=== PATIENT | female | born 1960 | race Caucasian/White ===

== ENCOUNTER 2023-02-01 08:42 | Day surgery (SDC) | payer BC, SELFPAY ==
[2023-02-01 09:06] VITALS: BP 151/50; PULSE 76; RESP 18; O2SAT 97
[2023-02-01] MEDS: BESIFLOXACIN HCL 100 DROP DROPS.SUSP OP ×4 (09:13→09:54)
[2023-02-01] MEDS: TROPICAMIDE 1% OP SOL 300 DROP/15 ML BOTTLE OP ×4 (09:14→09:55)
[2023-02-01] MEDS: DIAZEPAM 5 MG TABLET PO (09:14)
[2023-02-01] MEDS: CYCLOPENTOLATE HCL 1% OP SOL 40 DROP/2 ML BOTTLE OP ×4 (09:14→09:54)
[2023-02-01] MEDS: PHENYLEPHRINE HCL 2.5% OP SOL 40 DROP/2 ML BOTTLE OP ×4 (09:14→09:55)
--- NOTE | 2023-02-01 10:00 | OP_ITS ---
OPERATION DATE: ??02/01/2023 SURGEON:? Phan Burns M.D. PREOPERATIVE DIAGNOSIS:? Nuclear sclerotic cataract right eye. POSTOPERATIVE DIAGNOSIS:? Nuclear sclerotic cataract right eye. PROCEDURE:? Cataract extraction with intraocular lens placement for the right eye. ANESTHESIA:? Topical. ESTIMATED BLOOD LOSS:? Zero. COMPLICATIONS:? None. PROCEDURE:? The patient was brought to the operating room in supine position.? After proper identification, the right eye was prepped and draped in a sterile ophthalmic fashion.? A paracentesis was created at the 11 o'clock position.? Approximately 1 cc of unpreserved Xylocaine was injected into the anterior chamber followed by Amvisc Plus.? Using a 2.6 mm Keratome blade, a clear corneal incision was created at the 9 o'clock limbus.? A cystotome was then used to begin a curvilinear capsulorrhexis that was continued for 360 degrees with the Utrata forceps.? BSS on a 26 gauge cannula was injected beneath the anterior capsule to hydrodissect as well as hydrodelineate the lens.? After ensuring mobility, phacoemulsification was performed in a [id number]-type fashion.? After all nuclear material had been removed from the eye, IA was introduced and all residual cortical material was cleaned up.? Additional Amvisc Plus was injected into the posterior bag and a lens model MX60, 23.0 diopters was then injected and dialed into position.? After ensuring centration, IA was reintroduced into the anterior chamber and all residual Amvisc Plus was removed from the eye.?? BSS on a 30 gauge cannula was injected into the stroma of both the clear corneal incision as well as the paracentesis to hydrate the wounds.? Additional BSS was injected into the anterior chamber to pressurize the eye at approximately 20 to 22 mmHg by finger tension.? 0.1 cc of antibiotic was injected into the anterior chamber and Weck-Paulette sponges were used to check the wounds to be watertight.? One drop of Apraclonidine and one drop of prednisolone acetate were placed into the eye and a shield was placed over top. The patient was then sent to the postoperative area in satisfactory condition to follow up the following day for postoperative care. JUAN DAVID
[2023-02-01] MEDS: LIDOCAINE HCL 1% PF 20 MG/2 ML VIAL 1 ML INJ (10:15)
[2023-02-01] MEDS: BETADINE POVIDONE-IODINE 5% OP SOL 30 ML BOTTLE OP (10:15)
[2023-02-01] MEDS: LIDOCAINE 2% JELLY 10 ML UR (10:15)
[2023-02-01 10:23] VITALS: BP 141/81; PULSE 59; RESP 18; O2SAT 97
[2023-02-01] MEDS: HYALURONATE SODIUM 16 MG/ML SYRINGE EYE-RIGHT (10:29)
[2023-02-01] MEDS: CEFUROXIME SODIUM 750 MG, 0.9 % SODIUM CHLORIDE 16.3 ML OP (10:32)
[2023-02-01] MEDS: PHENYLEPHRINE/KETOROLAC 1-0.3% ML VIAL 4 ML IRR (10:33)
[2023-02-01] MEDS: APRACLONIDINE HCL 100 DROP/5 ML BOTTLE OP (10:33)
[2023-02-01] MEDS: PREDNISOLONE ACETATE OP 1% SUSP 100 DROPS/5 ML 1 DROP OP (10:34)
[2023-02-01 10:38] VITALS: BP 151/73; PULSE 64; RESP 18; O2SAT 100
== END 2023-02-01 10:50 | disposition home or self-care (01) ==
PROVIDERS: PCP Family Medicine; Visit Provider Ophthalmology
PROC: (CPT 66984; principal; 2023-02-01 10:00)
DX: H25.11 Age-related nuclear cataract, right eye (principal); E78.00 Pure hypercholesterolemia, unspecified; Z86.73 Personal history of transient ischemic attack (TIA), and cerebral infarction without residual deficits; M19.90 Unspecified osteoarthritis, unspecified site
CPT/HCPCS: 66984; V2630

== ENCOUNTER 2023-03-29 15:40 | Outpatient (OUT) | payer BC, SELFPAY ==
--- NOTE | 2023-03-29 15:46 | US_ITS ---
[address] [address] Patient Name: DIANNA CHAVARRIA MRN: [id number] date: 1960 Sex: F Assigned Patient Location: Current Patient Location: US Accession/Order Number: [id number] Exam Date: 03/29/2023 15:55 Report Date: 03/29/2023 21:00 At the request of: ANDERSON WALLACE Procedure: US carotid duplex BI EXAMINATION: US carotid duplex BI HISTORY: Carotid stenosis, left I65.22 COMPARISON: No relevant comparison available. TECHNIQUE: Duplex Doppler ultrasound analysis of carotid and vertebral arteries. . Bilateral carotid arterial duplex examination was performed using B-mode, color flow and spectral analysis. Carotid stenosis is reported according to validated velocity parameters, similar to NASCET criteria. FINDINGS: RIGHT CAROTID ARTERY Mild atherosclerotic plaque Subclavian: PSV: 127.0 cm/s cm/s EDV: 17.1 cm/s cm/s CCA: Prox: PSV: 94.6 cm/s cm/s EDV: 31.6 cm/s cm/s Mid: PSV: 88.2 cm/s cm/s EDV: 33.3 cm/s cm/s Distal: PSV: 62.9 cm/s cm/s EDV: 26.7 cm/s cm/s BULB: PSV: 57.8 cm/s cm/s EDV: 20.4 cm/s cm/s ICA: Prox: PSV: 68.8 cm/s cm/s EDV: 33.6 cm/s cm/s Mid: PSV: 75.4 cm/s cm/s EDV: 32.5 cm/s cm/s Distal: PSV: 166.4 cm/s cm/s EDV: 68.8 cm/s cm/s ECA: PSV: 89.6 cm/s cm/s EDV: 23.7 cm/s cm/s VERTEBRAL: PSV: 52.3 cm/s cm/s EDV: 24.8 cm/s cm/s, antegrade ICA/CCA ratio: PSV: 1.9 EDV: 2.1 LEFT CAROTID ARTERY mild atherosclerotic plaque Subclavian: PSV: 168.7 cm/s cm/s EDV: 0.0 cm/s CCA: Prox: PSV: 70.7 cm/s cm/s EDV: 13.7 cm/s Mid: PSV: 62.9 cm/s cm/s EDV: 18.9 cm/s Distal: PSV: 56.4 cm/s cm/s EDV: 12.4 cm/s BULB: PSV: 48.8 cm/s cm/s EDV: 10.4 cm/s ICA: Prox: Occluded ECA: PSV: 95.2 cm/s cm/s EDV: 22.5 cm/s VERTEBRAL: PSV: 72.5 cm/s cm/s EDV: 27.3 cm/s , antegrade ICA/CCA ratio: PSV: 0.9 EDV: 0.8 US/US carotid duplex BI IMPRESSION: 0-49% flow stenosis right internal carotid artery Occlusion of the left internal carotid artery Spectral Doppler US Thresholds (Reference: Rickie EG, et al. Radiology 2000; 214:247-252) Stenosis (%) PSV (cm/sec) VICA/VCCA 0-49 <150 <2.5 50-69 150-225 2.5-4.0 >70 >225 >4.0 Electronically authenticated by: MILEY HERNANDEZ Date: 03/29/2023 21:00
== END 2023-03-29 15:41 | disposition home or self-care (01) ==
LOC: US 15:41
PROVIDERS: PCP Family Medicine; Visit Provider Physician Assistant
DX: I65.23 Occlusion and stenosis of bilateral carotid arteries (principal); G45.9 Transient cerebral ischemic attack, unspecified
CPT/HCPCS: 93880

== ENCOUNTER 2023-08-01 15:25 | Outpatient (OUT) | payer BC, SELFPAY ==
--- NOTE | 2023-08-01 15:32 | XR_ITS ---
The [address] [address] Patient Name: DIANNA CHAVARRIA MRN: [id number] date: 1960 Sex: F Assigned Patient Location: [facility] Current Patient Location: [facility] Accession/Order Number: [id number] Exam Date: 08/01/2023 15:40 Report Date: 08/01/2023 16:26 At the request of: ANDERSON WALLACE Procedure: XR knee RT 4V EXAM: XR knee RT 4V HISTORY: Acute Pain Of Right Knee M25.561 COMPARISON: None. TECHNIQUE: 4 views of the right knee were obtained. FINDINGS: There is no apparent acute fracture or dislocation. The joint spaces are intact. No osteochondral injury is identified. Mild diffuse osteopenia is noted. A very small suprapatellar joint effusion is suggested. Faint soft tissue calcification is seen at the insertion site of the quadriceps tendon XR/XR knee RT 4V IMPRESSION: No acute fracture or dislocation. No significant degenerative changes are present. Electronically authenticated by: GAVIOTA HINDS Date: 08/01/2023 16:26
== END 2023-08-01 15:26 | disposition home or self-care (01) ==
PROVIDERS: PCP Family Medicine; Visit Provider Physician Assistant
DX: M25.561 Pain in right knee (principal)
CPT/HCPCS: 73564

== ENCOUNTER 2023-08-13 15:19 | Outpatient (OUT) | payer BC, SELFPAY ==
--- NOTE | 2023-08-13 15:25 | MR_ITS ---
[address] [address] Patient Name: DIANNA CHAVARRIA MRN: [id number] date: 1960 Sex: F Assigned Patient Location: MRI Current Patient Location: MRI Accession/Order Number: [id number] Exam Date: 08/13/2023 15:34 Report Date: 08/13/2023 16:28 At the request of: ANDERSON WALLACE Procedure: MR knee RT wo con EXAM: MR knee RT wo con REASON FOR EXAM: Internal Derangement Of Right Knee M23.91. TECHNIQUE: Multiplanar, multisequence imaging of the right knee was performed without contrast COMPARISON: Plain radiographs 08/01/2023. FINDINGS: Laterally, the iliotibial band, fibular collateral ligament, popliteus tendon and biceps tendon are intact. The ACL is intact. The lateral meniscus demonstrates normal morphology and signal without tear. 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 Medially, the medial collateral ligament is intact. The PCL is intact. The medial meniscus demonstrates a small focal free edge radial tear involving the posterior horn root attachment (series 8, image 19). No displaced meniscal fragment identified. Intermediate grade chondrosis of the medial compartment. The extensor mechanism is intact. Intermediate grade chondrosis of the patellofemoral cartilage. The bone marrow signal is normal. Trace effusion. The regional musculature is without muscle strain or tendon tear. MR/MR knee RT wo con IMPRESSION: 1. Small focal free edge radial tear of the posterior horn root attachment the medial meniscus. No displaced meniscal fragment identified. 2. Moderate tricompartmental chondrosis. 3. Trace effusion Electronically authenticated by: EDMOND GARG Date: 08/13/2023 16:28
== END 2023-08-13 15:20 | disposition home or self-care (01) ==
LOC: MRI 15:19
PROVIDERS: PCP Family Medicine; Visit Provider Physician Assistant
DX: M25.561 Pain in right knee (principal); W19.XXXA Unspecified fall, initial encounter; S83.206A Unspecified tear of unspecified meniscus, current injury, right knee, initial encounter; M23.91 Unspecified internal derangement of right knee; S83.241A Other tear of medial meniscus, current injury, right knee, initial encounter
CPT/HCPCS: 73721

== ENCOUNTER 2024-01-23 07:41 | Outpatient (OUT) | payer OTHER, SELFPAY ==
--- NOTE | 2024-01-23 07:42 | MM_ITS ---
Patient Name: DIANNA CHAVARRIA MR#: [id number] : 1960 Exam Date: 01/23/2024 Ordering Doctor: DR ANDERSON GOODMAN RADIOLOGY REPORT PROCEDURE: MM TOMOSYNTHESIS SCREENING BI COMPARISON: MG MAMM SCREEN 3D RAVINDER CAD, 06/07/2022. MG MAMM SCREEN RAVINDER W CAD, 09/22/2019. INDICATIONS: Screening Calculator Name NCI Breast Cancer Risk Assessment Tool 5 Year Breast Cancer Risk 1.40% Lifetime Breast Cancer Risk 4.90% Personal Breast Cancer No Personal Ovarian Cancer No Treatments None Family Cancers None LOCATION: [facility] BREAST COMPOSITION: There are scattered areas of fibroglandular density. FINDINGS: DIAGNOSTIC CATEGORY 2--BENIGN FINDING. NO CHANGE FROM COMPARISON. Scattered benign-appearing calcifications are present. Scattered benign-appearing lymph nodes are present. RIGHT BREAST: No significant suspicious finding. LEFT BREAST: No significant suspicious finding. RECOMMENDATIONS: ROUTINE MAMMOGRAM AND CLINICAL EVALUATION IN 12 MONTHS. PLEASE NOTE: A NORMAL MAMMOGRAM DOES NOT EXCLUDE THE POSSIBILITY OF BREAST CANCER. A CLINICALLY SUSPICIOUS PALPABLE LUMP SHOULD BE BIOPSIED. Dictated by: Miguel Post MD on 01/23/2024 at 10:54 Approved by: Miguel Post MD on 01/23/2024 at 10:55
--- OUTSIDE RECORDS SUMMARY | 2024-01-23 07:43 | XMS_ITS | CCD ---
Author Organization [facility] Care Team Providers Care Clinical Admissions Manager Name Role Phone KIMO FLORES Unavailable Unavailable KIMO FLORES Unavailable Unavailable KIMO FLORES Unavailable Unavailable MARIO ANDERSON Unavailable Unavailable MD Mario Anderson Primary Care Provider MD Richard Alamo Attending Provider [phone] SHERIF ., DR GENA Sunshine Consulting Unavailable SHERIF ., DR GENA Sunshine Admitting Unavailable MONICA, DR LYNN Primary Care Unavailable SHERIF ., DR GENA Sunshine Attending Unavailable FRANKY ., DR STEINER Consulting Unavailable GRAHAM SMITH Consulting Unavailable KIERSTEN DAUGHERTY Admitting Unavailable MONICA, DR LYNN Primary Care Unavailable KIERSTEN DAUGHERTY Attending Unavailable SALLY WALLACE Admitting Unavailable MARY, DR MILEY Hay Consulting Unavailable SALLY WALLACE Attending Unavailable MONICA, DR LYNN Primary Care Unavailable SALLY WALLACE Consulting Unavailable JOYCE PEDRAZA Consulting Unavailable FRANKY ., DR STEINER Admitting Unavailable MONICA, DR LYNN Primary Care Unavailable FRANKY Lewis, DR STEINER Attending Unavailable RENA VIVEROS Consulting Unavailable Unavailable Primary Care Provider UnavailMario Weaver MD Primary Care Provider ROCKY RANKIN Attending Unavailable MARIO ANDERSON Primary Care Unavailable MD Mario Anderson Primary Care Provider MD Rocky Rankin Attending Provider [phone] MD Gen Ohara Referring Provider MD Luis Alfredo Mendoza Attending Provider Luis Alfredo Mendoza Unavailable Luis Alfredo Mendoza Attending UnavailLuis Alfredo Pearl Admitting Unavailabl e Mario Anderson Primary Care Unavailable Gen Ohara Referring Unavailable Mario Anderson Primary Care Unavailable Rocky Rankin Attending Unavailable Rocky Rankin Admitting Unavailable Hemmer Sally GOODMAN Primary Care Provider PAT, WADE Rizzo Referring Unavailable NEWARK, WADE Rizzo Attending Unavailable NEWARK, WADE Rizzo Referring Unavailable NEWARK, WADE Rizzo Referring Unavailable NEWARK, WADE Rizzo Attending Unavailable NEWARK, WADE Rizzo Referring Unavailable NEWARK, WADE Rizzo Admitting Unavailable PAT, WADE Rizzo Attending Unavailable HILTONROSANNA PRITCHARD Attending Unavailable SALLY WALLACE Primary Care Unavailable JOHN PEREZ Attending Unavailab le HEMMER, SALLY Wilson Attending Unavailable APLING, MYKEL Montanez Attending Unavailable APLING, MYKEL Montanez Attending Unavailable APLING, MYKEL Montanez Attending Unavailable HEMNETO, SALLY Wilson Attending Unavailable HEMSALLY DUQUE Attending Unavailable PAT, WADE Rizzo Attending Unavailable HEMSALLY DUQUE Referring Unavailable PAT, WADE Rizzo Attending Unavailable APLING, MYKEL Montanez Attending Unavailable Allergies Allergy Classification Reported Allergen(s) Allergy Type Date of Onset Reaction(s) Facility (1 source) Clarithromycin Drug Allergy [address] [facility] Repository (8 sources) Clarithromycin; Translations: [CLARITHROMYCIN] Drug Allergy 0 Anaphylaxis, Unknown [facility] Medications Current Medications Medication Drug Class(es) Dates Sig (Normalized) Sig (Original) aspirin 81 mg delayed release oral tablet (6 sources) Platelet Aggregation Inhibitor, Nonsteroidal Anti-inflammatory Drug Start: 10-06-2019 take 1 tablet by mouth once daily Aspirin (Aspir-81) 81 mg Tablet,Delayed Release (Dr/Ec) Active 81 MG PO Daily October 06, 2019 12:00am atorvastatin 40 mg oral tablet (6 sources) HMG-CoA Reductase Inhibitor Start: 11-05-2020 take 40 mg by mouth once daily Atorvastatin Active 40 MG PO Daily November 05, 2020 12:00am clopidogrel 75 mg oral tablet (6 sources) P2Y12 Platelet Inhibitor Start: 11-05-2020 take 1 tablet by mouth once daily Clopidogrel (Plavix) 75 mg Tablet Active 75 MG PO Daily November 05, 2020 12:00am Potassium (1 source) Potassium Active Completed/Discontinued Medications Medication Drug Class(es) Dates Sig (Normalized) Sig (Original) predniSONE 10 mg oral tablet (6 sources) Start: 10-06-2019 End: 11-05-2020 Prednisone Discontinued 10 MG PO As Directed October 06, 2019 12:00am November 05, 2020 10:10am traMADol hydrochloride 50 mg oral tablet (7 sources) Opioid Agonist Start: 11-05-2020 End: 11-08-2020 take 50 mg by mouth once daily Tramadol Discontinued 50 MG PO Daily November 05, 2020 12:00am November 08, 2020 9:53am Problems Active Problems Problem Classification Problem Date Documented Date Episodic/Chronic Abdominal pain (8 sources) Indigestion; Translations: [Epigastric pain] Onset: 06-15-2022 11-08-2020 Episodic Chronic kidney disease (1 source) Chronic kidney disease, unspecified; Translations: [Chronic kidney disease, unspecified] Onset: 08-30-2023 Chronic Coronary atherosclerosis and other heart disease (1 source) Atherosclerotic heart disease of [place] coronary artery without angina pectoris; Translations: [Atherosclerotic heart disease of [place] coronary artery without angina pectoris] Onset: 08-30-2023 Chronic Disorders of lipid metabolism (4 sources) Mixed hyperlipidemia; Translations: [Mixed hyperlipidemia] Onset: 09-13-2023 09-13-2023 Chronic Mood disorders (1 source) Major depressive disorder, single episode, unspecified; Translations: [JAIMIE DEPRESS D/O SINGLE EPIS UNS] Onset: 06-15-2022 Chronic Occlusion or stenosis of precerebral arteries (8 sources) Asymptomatic occlusion of extracranial carotid artery; Translations: [Occlusion and stenosis of unspecified carotid artery] Onset: 09-13-2023 09-13-2023 Chronic Other and unspecified benign neoplasm (1 source) History of polyp of colon; Translations: [History of colon polyps] Episodic Other nervous system disorders (1 source) Chronic pain; Translations: [Other chronic pain] Chronic Other nutritional; endocrine; and metabolic disorders (2 sources) Overweight in adulthood with body mass index of 25 or more but less than 30; Translations: [Overweight] Onset: 09-13-2023 09-13-2023 Episodic Other nutritional; endocrine; and metabolic disorders (2 sources) Overweight; Translations: [Overweight] Onset: 09-13-2023 Episodic Other nutritional; endocrine; and metabolic disorders (2 sources) Body mass index (BMI) 27.0-27.9, adult; Translations: [Body mass index (BMI) 27.0-27.9, adult] Onset: 09-13-2023 Episodic Other screening for suspected conditions (not mental disorders or infectious disease) (15 sources) History of adenomatous polyp of colon; Translations: [Encounter for screening for malignant neoplasm of colon] Onset: 06-07-2022 11-08-2020 Episodic Residual codes; unclassified (6 sources) Hereditary disorder of endocrine system; Translations: [Genetic susceptibility to other disease] 11-10-2020 Episodic Spondylosis; intervertebral disc disorders; other back problems (3 sources) Solitary sacroiliitis; Translations: [Sacroiliitis, not elsewhere classified] Chronic Transient cerebral ischemia (1 source) Transient cerebral ischemia; Translations: [Transient cerebral ischemic attack, unspecified] Chronic Unclassified (1 source) LEFT SHOULDER BICEP TENDONITIS ROTATOR CUFF SYNDROME / LEFT SHOULDER BICEP TENDONITIS ROTATOR CUFF SYNDROME() Onset: 01-30-2018 Unclassified (1 source) CONTACT W/AND (SUSP) EXPOS COVID-19; Translations: [CONTACT W/AND (SUSP) EXPOS COVID-19] Onset: 09-11-2022 Unclassified (1 source) right knee meniscal tear Onset: 09-26-2023 Past or Other Problems Problem Classification Problem Date Documented Da te Episodic/Chronic Abdominal hernia (1 source) Diaphragmatic hernia without obstruction or gangrene; Translations: [DIAPH HERNIA W/O OBST/GANGRENE] Onset: 09-11-2022 Episodic Calculus of urinary tract (2 sources) Calculus of kidney; Translations: [Personal history of urinary calculi] Onset: 06-15-2022 Episodic Nausea and vomiting (4 sources) Nausea with vomiting, unspecified; Translations: [NAUSEA WITH VOMITING UNSPECIFIED] Onset: 06-13-2022 Episodic Nonspecific chest pain (4 sources) Chest pain, unspecified; Translations: [CHEST PAIN UNSPECIFIED] Onset: 09-03-2022 Episodic Other aftercare (1 source) Other correction (current) drug therapy; Translations: [OTH SUB PLANT MANAGER CURRENT DRUG THERAPY] Onset: 09-11-2022 Episodic Other aftercare (1 source) rodent exterminator (current) use of aspirin; Translations: [SUB PLANT MANAGER CURRENT USE OF ASPIRIN] Onset: 06-15-2022 Episodic Other bone disease and musculoskeletal deformities (1 source) Chondrocostal junction syndrome [Tietze]; Translations: [CHONDROCOSTAL JUNCTION SYND TIETZE] Onset: 09-11-2022 Episodic Other diseases of kidney and ureters (1 source) Cyst of kidney, acquired; Translations: [CYST OF KIDNEY ACQUIRED] Onset: 09-11-2022 Episodic Other lower respiratory disease (1 source) Personal history of other diseases of the respiratory system; Translations: [PERS HX OTH DZ RESPIRATORY SYSTEM] Onset: 09-11-2022 Episodic Other lower respiratory disease (1 source) Shortness of breath; Translations: [SHORTNESS OF BREATH] Onset: 09-11-2022 Episodic Residual codes; unclassified (1 source) Acquired absence of other specified parts of digestive tract; Translations: [ACQ ABSENCE OTH PART DIGESTV TRACT] Onset: 09-11-2022 Episodic Residual codes; unclassified (1 source) Acquired absence of both cervix and uterus; Translations: [ACQUIRED ABSENCE BOTH CERVIX AND UTERUS] Onset: 09-11-2022 Episodic Screening and history of mental health and substance abuse codes (1 source) Personal history of nicotine dependence; Translations: [PERSONAL HISTORY OF NICOTINE DEPEND] Onset: 09-11-2022 Episodic Unclassified (1 source) LEFT SHOULDER BICEP TENDONITIS ROTATOR CUFF SYNDROME; Translations: [LEFT SHOULDER BICEP TENDONITIS ROTATOR CUFF SYNDROME] Onset: 01-30-2018 Results Test Name Value Interpretation Reference Range Facility US carotid doppler BIon 09-04 US carotid doppler BI [facility] [address] Ultrasound Report Signed Patient: Dianna Chavarria MR#: [id number] : 1960 Acct:[id number] Age/Sex: 63 / F ADM Date: 09/20/23 Loc: [facility]: [facility] Attending Dr: Luis Alfredo Mendoza MD Ordering Provider: Luis Alfredo Mendoza MD Date of Service: 09/20/23 US/US carotid doppler BI: I65.23 Copies to: Luis Alfredo Mendoza MD CAROTID DUPLEX INDICATION: Surveillance study for known left internal carotid artery occlusion. PROCEDURE: Color-flow duplex scanning is used to interrogate the extracranial carotid arterial system, as well as both vertebral arteries. The proximal right internal carotid artery shows a highest peak systolic velocity of 77 cm/s with an end-diastolic velocity of 34.8 cm/s . The mid internal carotid artery measures 96.3 cm/s peak systolic with an end-diastolic velocity of 46.6 cm/s . The distal segment measures 142 cm/s peak systolic with an end diastolic velocity of 47.5 cm/s . The velocities of the right common carotid artery are 113 cm/s peak systolic and 34.3 cm/s end- diastolic proximally and 88.4 cm/s peak systolic and 32.4 cm/s end-diastolic distally. The peak systolic velocity ratio of the internal to the common carotid artery is 1.26 . The right external carotid artery measures 94.4 cm/s peak systolic. The right vertebral artery is patent at 75.2 cm/s peak systolic and with antegrade flow. The proximal left internal carotid artery shows a highest peak systolic velocity of 20.4 cm/s.The velocities of the left common carotid artery are 108 cm/s peak systolic and 21.1 cm/s end- diastolic proximally and 98.8 cm/s peak systolic and 24.9 cm/s end-diastolic distally. The peak systolic velocity ratio of the internal to the common carotid artery is 0.19 . The left external carotid artery measures 148 cm/s peak systolic. The left vertebral artery is patent at 77 cm/s peak systolic with antegrade flow. US/US carotid doppler BI IMPRESSION: NO HEMODYNAMICALLY SIGNIFICANT STENOSIS OF THE RIGHT EXTRACRANIAL INTERNAL CAROTID ARTERY. BOTH VERTEBRAL ARTERIES ARE PATENT WITH ANTEGRADE FLOW. The left internal carotid artery is occluded. Impression dictated by: Luis Alfredo Mendoza MD09/22/2023 2:19 PM Dictation Location: RAD-DOC-04 Tech: Bety Mcdonald Transcribed By: ZAINA 09/22/231418 Dictated By: Luis Alfredo Mendoza MD 09/22/231417 Signed By: 09/22/231418 Normal [facility] NM sin perf SPECT rest stron 09-20-2023 NM sin perf SPECT rest [facility] [place] [address] Nuclear Medicine Report Signed Patient: Dianna Chavarria MR#: [id number] : 1960 Acct:[id number] Age/Sex: 63 / F ADM Date: 09/19/23 Loc: [place] Room: Type: [facility] CLI Attending Dr: Rocky Rankin MD Copies to: Rocky Rankin MD, [facility] Gen Ohara MD Ordering Provider: Rocky Rankin MD, [facility] Date of Service: 09/19/23 NM/NM sin perf SPECT rest str: R94.31,E78.2,Z01.818 REFERRING PHYSICIAN: Rocky Rankin MD REASON FOR THE STUDY: Preoperative clearance. PROCEDURE: The patient underwent a 1-day rest/stress protocol. Rest images obtained by injecting 6.2 mCi of Cardiolite. Stress images obtained by injecting 18.3 mCi of Cardiolite. Subsequently, gated SPECT and ejection fraction studies were performed. IMAGING RESULT: This appears to be a fair study. It appears to be normal. There is no clear pattern of ischemia or myocardial infarction. Left ventricular ejection fraction appears normal, calculated at 78%. TID index normal at 0.99. CONCLUSION: 1. No clear pattern of ischemia or myocardial infarction. 2. Normal left ventricular systolic function and wall motion. 3. No previous study available for comparison. Transcribed By: MIGUE 09/20/231945 Dictated By: Gen Ohara MD 09/20/23 1833 Signed By: 09/21/23 1231 Normal [facility] STR cardiac stress/lexiscano n 09-19-2023 STR cardiac stress/lexiscan [facility] Main [address] [address] Cardiac Stress Test Signed Patient: Dianna Chavarria MR#: [id number] : 1960 Acct:[id number] Age/Sex: 63 / F ADM Date: 09/19/23 Loc: [place] Room: Type: [facility] CLI Attending Dr: Rocky Rankin MD Copies to: Rocky Rankin MD, [facility] Gen Ohara MD Ordering Provider: Rokcy Rankin MD, [facility] Date of Service: 09/19/23 STR/STR cardiac stress/lexiscan: carotid stenosis hyperlipidemia abn ekg REFERRING PHYSICIAN: Rocky Rankin MD REASON FOR STUDY: Preoperative risk assessment, abnormal EKG, carotid disease. PROCEDURE: The patient underwent Lexiscan myocardial perfusion study. The patient was injected with 0.4 mg of Lexiscan, following which she reported typical vasodilatory symptoms. Blood pressure and heart response to Lexiscan was physiologic. Baseline ECG showed normal sinus rhythm with diffuse nonspecific ST-T changes. Following Lexiscan, no changes were seen. Aminophylline was given to reverse vasodilatory symptoms. CONCLUSION: 1. Lexiscan myocardial perfusion study with nondiagnostic ST-T changes for ischemia. 2. Typical vasodilatory symptoms following Lexiscan infusion, resolved with aminophylline infusion. 3. No provoked arrhythmia. 4. Myocardial perfusion study will be dictated separately. Transcribed By: MIGUE 09/20/23 1502 Dictated By: Gen Ohara MD 09/19/23 1904 Signed By: 09/20/23 1541 Normal [facility] ECG 12 Leadon 09-13-2023 ECG revealed normal sinus rhythm with nonspecific ST and T changes and PAC [facility] Work Phone: CARDIAC FRANCISCA 3-6on 3 CK [Catalytic activity/Vol] 67 U/L Normal 26-192 [facility] Comment on above: Performed By: #### C MREP #### [facility] [address] [address] [address] José Miguel Farr CK.MB [Mass/Vol] 2.38 ng/mL Normal <=3.60 [facility] [place] Comment on above: Performed By: #### C MREP #### [facility] [id number] José Miguel Farr HSTROP 32.8 pg/mL Normal 4.0-51.[address] [facility] Comment on above: Result Comment: CUT- OFF POINTS HAVE BEEN ESTABLISHED BASED ON THE FOURTH UNIVERSAL DEFINITIONS OF MYOCARDIAL INFARCTION. THE UPPER REFERENCE LIMIT (URL) OF TROPONIN, DEFINED THE 99TH PERCENTILE OF cTnI DISTRIBUTION IN A REFERENCE POPULATION, HAS BEEN CONFIRMED THE DECISION THRESHOLD FOR LA DIAGNOSIS. Performed By: #### C MREP #### [facility] [address] [address] [address] José Miguel Farr Covid-19 PCR (CVDTB)on SARS-CoV-2 (COVID-19) RNA ARETHA+probe Ql (Unsp spec) Not detected Normal NOT DETECTED [facility] Comment on above: Result Comment: When diagnostic testing is negative, the possibility of a false negative should be considered in the context of a patient's recent exposures and the presence of clinical signs and symptoms consistent with SARS-CoV-2. This test is not yet approved or cleared by the [place] FDA. When there are no FDA-approved or cleared tests available, and other criteria are met, FDA can make tests available under an emergency access mechanism called an Emergency Use Authorization (EUA). The EUA for this test is supported by the [place] of Health and Human Service's declaration that circumstances exist to justify the emergency use of in vitro diagnostics for the detection and/or diagnosis of the virus that causes COVID-19. This EUA will remain in effect for the duration of the COVID-19 declaration justifying emergency of IVDs, unless it is terminated or revoked by the FDA (after which the test may no longer be used). Performed By: #### C VDTBH ####[facility] [address] [id number] Farr BNPon 09-03-2022 Natriuretic peptide B (Bld) [Mass/Vol] 222.0 pg/mL Normal <=900.[address] [facility] Comment on above: Performed By: #### B MP, BNP, HSTROPN ####[facility] [address] [place], [place] [address]VzJoshua Farr CBC AUTO DIFFon 09-03-2022 BASO # 0.0 103/ul Normal 0.0-0.[address] [facility] Comment on above: Performed By: #### C BC #### [facility] [address] [place], [place] [address] Dr. José Miguel Farr Basophils/100 WBC (Bld) 0.2 % Normal 0.2-2.0 [facility] Comment on above: Performed By: #### C BC #### [facility] [address] [place] [address] Dr. José Miguel Farr EO # 0.0 103/ul Normal 0.0-0.7 [facility] Comment on above: Performed By: #### C BC #### [facility] [address] [place] [address] Dr. José Miguel Farr Eosinophils/100 WBC (Bld) 0.1 % Critically low 0.9-7.0 [facility] Comment on above: Performed By: #### C BC #### [facility] [address] [place] [address] Dr. José Miguel Farr Erythrocyte distribution width (RBC) [Ratio] 12.1 % Normal 11.0-15.0 [facility] Comment on above: Performed By: #### C BC #### [facility] [address] [place] [address] Dr. José Miguel Farr Hematocrit (Bld) [Volume fraction] 45.6 % Normal 36.0-48.0 [facility] Comment on above: Performed By: #### C BC #### [facility] [address] [place] [address] Dr. José Miguel Farr Hemoglobin (Bld) [Mass/Vol] 14.7 g/dL Normal 12.0-16.0 [facility] Comment on above: Performed By: #### C BC #### [facility] [address] [place] [address] Dr. José Miguel Farr IG # 0.04 10e3/ul Critically high 0.00-0.03 [facility] Comment on above: Performed By: #### C BC #### [facility] [address] [place] [address] Dr. José Miguel Farr IG % 0.3 % Normal 0.0-0.5 [facility] Comment on above: Performed By: #### C BC #### [facility] [address] [place] [address] Dr. José Miguel Farr LYMPH # 1.3 103/ul Normal 1.2-3.8 [facility] Comment on above: Performed By: #### C BC #### [facility] [address] [address] [address] José Miguel Farr Lymphocytes/100 WBC (Bld) 10.5 % Critically low 20.5-60.0 [facility] Comment on above: Performed By: #### C BC #### [facility] [address] [place] [address] Dr. José Miguel Farr MANUAL DIFF REQ NO Normal [facility] Comment on above: Performed By: #### C BC #### [facility] [address] [address] [address] José Miguel Farr MCH (RBC) [Entitic mass] 31.2 pg Normal 26.7-34.0 [facility] Comment on above: Performed By: #### C BC #### [facility] [address] [place] [address] Dr. José Miguel Farr MCHC (RBC) [Mass/Vol] 32.2 g/dL Normal 29.9-35.2 [facility] Comment on above: Performed By: #### C BC #### [facility] [address] [place] [address] Dr. José Miguel Farr MCV (RBC) [Entitic vol] 96.8 fL Normal 81.0-99.0 [facility] Comment on above: Performed By: #### C BC #### [facility] [address] [place] [address] Dr. José Miguel Farr MONO # 1.2 103/ul Critically high 0.3-0.8 [facility] Comment on above: Performed By: #### C BC #### [facility] [address] [place] [address] Dr. José Miguel Farr Monocytes/100 WBC (Bld) 9.4 % Normal 1.7-12.[address] [facility] Comment on above: Performed By: #### C BC #### [facility] [address] [place] [address] Dr. José Miguel Farr NEUT # 9.8 103/ul Critically high 1.4-6.5 [facility] Comment on above: Performed By: #### C BC #### [facility] [address] [address] [address] José Miguel Farr Neutrophils/100 WBC (Bld) 79.5 % Critically high 43.0-75.0 [facility] Comment on above: Performed By: #### C BC #### [facility] [address] [address] [address] José Miguel Farr Platelet mean volume (Bld) [Entitic vol] 9.6 fL Normal 9.5-13.5 [facility] Comment on above: Performed By: #### C BC #### [facility] [address] [address] [address] José Miguel Farr PLT 303 103/ul Normal 150-450 [facility] Comment on above: Performed By: #### C BC #### [facility] [address] [place] [address] Dr. José Miguel Farr RBC 4.71 106/ul Normal 4.20-5.[address] [facility] Comment on above: Performed By: #### C BC #### [facility] [address] [place] [address] Dr. José Miguel Farr WBC 12.3 103/ul Critically high 4.0-11.0 [facility] Comment on above: Performed By: #### C BC #### [facility] [address] [place] [address] Dr. José Miguel Farr CTA CHEST WO W CONon 023 CTA CHEST WO W CON EXAMINATION:CTA CHES T WO W CON INDICATION:CHEST PAIN, UNSPECIFIED, shortness of breath COMPARISON:10/05/2017 TECHNIQUE:Thin section transaxial slices were acquired through the chest with intravenous contrast per PE protocol. Coronal and sagittal reconstructed images were reviewed. FINDINGS: PULMONARY ARTERIES: There is excellent opacification of the pulmonary vasculature. No suspicious pulmonary arterial filling defects are identified to suggest pulmonary embolus. LUNGS: There is curvilinear scarring or atelectasis in the lung bases. No suspicious airspace disease is appreciated in the lungs to suggest an infectious or inflammatory process. PLEURAL CAVITY: No pleural effusion. MEDIASTINUM: Trachea and central airways are patent. HEART: The heart is unremarkable.There is no evidence of right heart strain. VASCULAR:There is no aneurysm or dissection of the thoracic aorta. LYMPH NODES:No suspicious lymphadenopathy. CHEST WALL/AXILLA: Chest wall and axilla are unremarkable. BONES: Mild endplate degenerative changes are present in the thoracic spine. VISUALIZED UPPER ABDOMEN: There is similar intrahepatic ductal dilation. There is a simple cyst in the left upper kidney measuring 1.2 cm. IMPRESSION: 1. No evidence of pulmonary embolus. No suspicious airspace disease in the lungs. Electronically authenticated by: GRAHAM SMITH Date: 2022-09-03 18:11 Normal [facility] D-DIMERon 09-03-2022 D-DIMER 2.04 mg/L FEU Critically high <=0.[address] [facility] Comment on above: Performed By: #### D DIM #### [facility] [address] [address] [address] José Miguel Farr D-DIMER COMMENTS SEE BELOW Normal [facility] Comment on above: Result Comment: Incr eases in D-Dimer concentration observed with thromboembolic events can be variable due to localization, size, and age of the thrombus. Therefore, a thromboembolic event cannot be diagnosed with certainty on the basis of the reference range. D-Dimers may also be elevated for a variety of disorders including: advanced age, , coronary disease, cancer, liver disease, infection, inflammation, hematoma, DIC, trauma, post-surgery, diabetes, thrombolytic or anticoagulant therapy, stress, and generalized hospitalization. Performed By: #### D DIM #### [facility] [address] [address] [address] José Miguel Farr PROF CHEM 8 (BAS METB)on Anion gap [Moles/Vol] 15.8 mmol/L Normal [facility] Comment on above: Performed By: #### B MP, BNP, HSTROPN ####[facility] [address] [id number]. José Miguel Farr Calcium [Mass/Vol] 9.1 mg/dL Normal 8.5-10.1 [facility] Comment on above: Performed By: #### B MP, BNP, HSTROPN ####[facility] [address] [id number]. José Miguel Farr Chloride [Moles/Vol] 106 mmol/L Normal 98-107 [facility] Comment on above: Performed By: #### B MP, BNP, HSTROPN ####[facility] [address] [address]Dr. José Miguel Farr CO2 [Moles/Vol] 23.5 mmol/L Normal 21.0-32.0 [facility] Comment on above: Performed By: #### B MP, BNP, HSTROPN ####[facility] [id number] [place], [place] [address]Dr. José Miguel Farr Creatinine [Mass/Vol] 0.85 mg/dL Normal 0.55-1.02 [facility] Comment on above: Performed By: #### B MP, BNP, HSTROPN ####[facility] [address] [address]Dr. José Miguel Farr EGFR-AF SRI LANKAN >60 Normal >=60 [facility] Comment on above: Performed By: #### B MP, BNP, HSTROPN ####[facility] [address] [place], [place] [address]Dr. José Miguel Farr EGFR-NON AF SRI LANKAN >60 Normal >=60 [facility] Comment on above: Performed By: #### B MP, BNP, HSTROPN ####[facility] [address] [address]Dr. Sandiannetta Farr Glucose [Mass/Vol] 125 mg/dL Critically high 74-106 [facility] Comment on above: Performed By: #### B MP, BNP, HSTROPN ####[facility] [address] [address]Dr. José Miguel Farr Potassium [Moles/Vol] 3.3 mmol/L Critically low 3.5-5.1 [facility] Comment on above: Performed By: #### B MP, BNP, HSTROPN ####[facility] [address] [address]Dr. José Miguel Farr Sodium [Moles/Vol] 142 mmol/L Normal 136-145 [facility] Comment on above: Performed By: #### B MP, BNP, HSTROPN ####[facility] [address] [address]DrJoshua Farr Urea nitrogen [Mass/Vol] 21.0 mg/dL Critically high 7.0-18.0 [facility] Comment on above: Performed By: #### B MP, BNP, HSTROPN ####[facility] [address] [address]Dr. José Miguel Farr Urea nitrogen/Creatinin e [Mass ratio] 24.7 mg/mg Normal [facility] Comment on above: Performed By: #### B MP, BNP, HSTROPN ####[facility] [address] [address]DrJoshua Farr TROPONIN, HIGH SENSITIVITYon 09-03-2022 HSTROP 35.9 pg/mL Normal 4.0-51.3 [facility] Comment on above: Result Comment: CUT- OFF POINTS HAVE BEEN ESTABLISHED BASED ON THE FOURTH UNIVERSAL DEFINITIONS OF MYOCARDIAL INFARCTION. THE UPPER REFERENCE LIMIT (URL) OF TROPONIN, DEFINED THE 99TH PERCENTILE OF cTnI DISTRIBUTION IN A REFERENCE POPULATION, HAS BEEN CONFIRMED THE DECISION THRESHOLD FOR LA DIAGNOSIS. Performed By: #### H STROPN #### [facility] [address] [address] [address] José Miguel Farr HSTROP 23.4 pg/mL Normal 4.0-51.3 [facility] Comment on above: Result Comment: CUT- OFF POINTS HAVE BEEN ESTABLISHED BASED ON THE FOURTH UNIVERSAL DEFINITIONS OF MYOCARDIAL INFARCTION. THE UPPER REFERENCE LIMIT (URL) OF TROPONIN, DEFINED THE 99TH PERCENTILE OF cTnI DISTRIBUTION IN A REFERENCE POPULATION, HAS BEEN CONFIRMED THE DECISION THRESHOLD FOR LA DIAGNOSIS. Performed By: #### B MP, BNP, HSTROPN ####[facility] [address] [address]DrJoshua Farr CBC AUTO DIFFon 06-13-2022 BASO # 0.1 103/ul Normal 0.0-0.1 [facility] Comment on above: Performed By: #### C BC #### [facility] [address] [address] [address] José Miguel Farr Basophils/100 WBC (Bld) 0.4 % Normal 0.2-2.0 [facility] Comment on above: Performed By: #### C BC #### [facility] [address] [place] [address] Dr. José Miguel Farr EO # 0.0 103/ul Normal 0.0-0.7 [facility] Comment on above: Performed By: #### C BC #### [facility] [address] [place] [address] Dr. José Miguel Farr Eosinophils/100 WBC (Bld) 0.3 % Critically low 0.9-7.0 [facility] Comment on above: Performed By: #### C BC #### [facility] [address] [place] [address] Dr. José Miguel Farr Erythrocyte distribution width (RBC) [Ratio] 12.3 % Normal 11.0-15.0 [facility] Comment on above: Performed By: #### C BC #### [facility] [address] [place] [address] Dr. José Miguel Farr Hematocrit (Bld) [Volume fraction] 42.8 % Normal 36.0-48.0 [facility] Comment on above: Performed By: #### C BC #### [facility] [address] [place] [address] Dr. José Miguel Farr Hemoglobin (Bld) [Mass/Vol] 13.8 g/dL Normal 12.0-16.0 [facility] Comment on above: Performed By: #### C BC #### [facility] [address] [place] [address] Dr. José Miguel Farr IG # 0.08 10e3/ul Critically high 0.00-0.03 [facility] Comment on above: Performed By: #### C BC #### [facility] [address] [place] [address] Dr. José Miguel Farr IG % 0.5 % Normal 0.0-0.5 [facility] Comment on above: Performed By: #### C BC #### [facility] [address] [place] [address] Dr. José Miguel Farr LYMPH # 1.5 103/ul Normal 1.2-3.[address] [facility] Comment on above: Performed By: #### C BC #### [facility] [address] [place] [address] Dr. José Miguel Farr Lymphocytes/100 WBC (Bld) 9.6 % Critically low 20.5-60.0 [facility] Comment on above: Performed By: #### C BC #### [facility] [address] [place] [address] Dr. José Miguel Farr MANUAL DIFF REQ NO Normal [facility] Comment on above: Performed By: #### C BC #### [facility] [address] [place] [address] Dr. José Miguel Farr MCH (RBC) [Entitic mass] 30.9 pg Normal 26.7-34.0 [facility] Comment on above: Performed By: #### C BC #### [facility] [address] [place] [address] Dr. José Miguel Farr MCHC (RBC) [Mass/Vol] 32.2 g/dL Normal 29.9-35.2 [facility] Comment on above: Performed By: #### C BC #### [facility] [address] [place] [address] Dr. José Miguel Farr MCV (RBC) [Entitic vol] 96.0 fL Normal 81.0-99.0 [facility] Comment on above: Performed By: #### C BC #### [facility] [address] [place] [address] Dr. José Miguel Farr MONO # 1.5 103/ul Critically high 0.3-0.8 [facility] Comment on above: Performed By: #### C BC #### [facility] [address] [place] [address] Dr. José Miguel Farr Monocytes/100 WBC (Bld) 9.2 % Normal 1.7-12.[address] [facility] Comment on above: Performed By: #### C BC #### [facility] [address] [place] [address] Dr. José Miguel Farr NEUT # 12.7 103/ul Critically high 1.4-6.5 [facility] Comment on above: Performed By: #### C BC #### [facility] [address] [place] [address] Dr. José Miguel Farr Neutrophils/100 WBC (Bld) 80.0 % Critically high 43.0-75.0 [facility] Comment on above: Performed By: #### C BC #### [facility] [address] [place] [address] Dr. José Miguel Farr Platelet mean volume (Bld) [Entitic vol] 9.4 fL Critically low 9.5-13.5 [facility] Comment on above: Performed By: #### C BC #### [facility] [address] [place] [address] Dr. José Miguel Farr PLT 321 103/ul Normal 150-450 [facility] Comment on above: Performed By: #### C BC #### [facility] [address] [place] [address] Dr. José Miguel Farr RBC 4.46 106/ul Normal 4.20-5.[address] [facility] Comment on above: Performed By: #### C BC #### [facility] [address] [place] [address] Dr. José Miguel Farr WBC 15.9 103/ul Critically high 4.0-11.0 [facility] Comment on above: Performed By: #### C BC #### [facility] [address] [place] [address] Dr. José Miguel Farr CT ABD/PELVIS WO CONon 06-13 CT ABD/PELVIS WO CON INDICATION: UNSPECIFIED ABDOMINAL PAIN EXAMINATION: CT ABDOMEN AND PELVIS WITHOUT CONTRAST TECHNIQUE: Helically acquired images were obtained of the abdomen and pelvis without IV contrast. A radiation dose optimization technique was used for this scan. ORAL CONTRAST: None. COMPARISON: 06/29/2020 FINDINGS: LOWER CHEST: Mild left lower lobe scarring or atelectasis is unchanged. Mild right lower lobe scarring or atelectasis is new. The heart size is within normal limits. A pericardial effusion is not identified. LIVER: Mild intra and extrahepatic bile duct dilatation is unchanged. GALLBLADDER AND BILIARY TREE: The gallbladder is absent.. No intra- or extrahepatic biliary ductal dilation is identified. STOMACH: There is a small hiatal hernia. PANCREAS: A pancreatic mass or lesion is not identified. The pancreatic duct does not appear dilated. SPLEEN: The spleen does not appear enlarged. A splenic lesion is not identified. ADRENAL GLANDS: The adrenal glands appear normal. KIDNEYS AND URETERS: Scattered high and low bilateral renal lesions likely represent simple and hemorrhagic/proteinaceous cysts, unchanged since the prior. There is a nonobstructing roughly 2 mm mid pole left renal calculus, unchanged since the prior. The ureters are unremarkable in appearance. PERITONEUM: No free intra-abdominal air is identified. No free pelvic fluid is detected. BOWEL: No bowel distension is observed. There are scattered diverticula involving the ascending and transverse colon. There is no associated colonic wall thickening or stranding of adjacent fat planes to suggest diverticulitis or colitis. LYMPH NODES: No enlarged mesenteric or retroperitoneal lymph nodes. VESSELS: An aneurysm is not identified. No calcifications are observed within the abdominal aorta. UTERUS: Absent. OVARIES: The ovaries are not identified. URINARY BLADDER: Unremarkable. ABDOMINAL WALL: No abdominal or pelvic wall hernia. APPENDIX: The appendix is absent. MUSCULOSKELETAL: No lytic or blastic abnormality. IMPRESSION: 1. Mild intra and extrahepatic bile duct dilatation of only questionable relevance, unchanged. Please correlate with liver function tests. 2. Mild to moderate diverticulosis involving the descending and transverse colon without associated colonic wall thickening or stranding of adjacent fat planes to imply diverticulitis. 3. Nephrolithiasis. 4. Scattered high and low bilateral renal lesions, likely representing simple and hemorrhagic cysts, unchanged. 5. An acute abnormality is not identified. Electronically authenticated by: JOYCE PEDRAZA Date: 2022-06-13 20:25 Normal [facility] LIPASEon 06-13-2022 Lipase [Catalytic activity/Vol] 155.0 U/L Normal 73.0-393.[address] [facility] Comment on above: Performed By: #### L IPA, CMP #### [facility] [address] [place] [address] Dr. José Miguel Farr PROF 14(COMP METB)on 022 Albumin [Mass/Vol] 3.9 g/dL Normal 3.4-5.0 [facility] Comment on above: Performed By: #### L IPA, CMP #### [facility] [address] [place] [address] Dr. José Miguel Farr Albumin/Globulin [Mass ratio] 1.2 {ratio} Normal [facility] Comment on above: Performed By: #### L IPA, CMP #### [facility] [address] [address] [address] José Miguel Farr ALP [Catalytic activity/Vol] 66 U/L Normal 46-116 [facility] Comment on above: Performed By: #### L IPA, CMP #### [facility] [address] [place] [address] Dr. José Miguel Farr ALT [Catalytic activity/Vol] 30 U/L Normal 14-59 [facility] Comment on above: Performed By: #### L IPA, CMP #### [facility] [address] [place] [address] Dr. José Miguel Farr Anion gap [Moles/Vol] 11.6 mmol/L Normal [facility] Comment on above: Performed By: #### L IPA, CMP #### [facility] [address] [place] [address] Dr. José Miguel Farr AST [Catalytic activity/Vol] 16 U/L Normal 15-37 [facility] Comment on above: Performed By: #### L IPA, CMP #### [facility] [address] [place] [address] Dr. José Miguel Farr Bilirubin [Mass/Vol] 0.4 mg/dL Normal 0.2-1.0 [facility] Comment on above: Performed By: #### L IPA, CMP #### [facility] [address] [place] [address] Dr. José Miguel Farr Calcium [Mass/Vol] 9.1 mg/dL Normal 8.5-10.[address] [facility] Comment on above: Performed By: #### L IPA, CMP #### [facility] [address] [place] [address] Dr. José Miguel Farr Chloride [Moles/Vol] 103 mmol/L Normal 98-107 [facility] Comment on above: Performed By: #### L IPA, CMP #### [facility] [address] [address] [address] José Miguel Farr CO2 [Moles/Vol] 29.1 mmol/L Normal 21.0-32.0 [facility] Comment on above: Performed By: #### L IPA, CMP #### [facility] [address] [address] [address] José Miguel Farr Creatinine [Mass/Vol] 0.83 mg/dL Normal 0.55-1.02 [facility] Comment on above: Performed By: #### L IPA, CMP #### [facility] [address] [address] [address] José Miguel Farr EGFR-AF SRI LANKAN >60 Normal >=60 [facility] Comment on above: Performed By: #### L IPA, CMP #### [facility] [address] [address] [address] José Miguel Farr EGFR-NON AF SRI LANKAN >60 Normal >=60 [facility] Comment on above: Performed By: #### L IPA, CMP #### [facility] [address] [place] [address] Dr. José Miguel Farr Globulin (S) [Mass/Vol] 3.3 g/dL Normal [facility] Comment on above: Performed By: #### L IPA, CMP #### [facility] [address] [address] [address] José Miguel Farr Glucose [Mass/Vol] 102 mg/dL Normal 74-106 [facility] Comment on above: Performed By: #### L IPA, CMP #### [facility] [address] [address] [address] José Miguel Farr Potassium [Moles/Vol] 3.7 mmol/L Normal 3.5-5.1 [facility] Comment on above: Performed By: #### L IPA, CMP #### [facility] [address] [address] [address] José Miguel Farr Protein [Mass/Vol] 7.2 g/dL Normal 6.4-8.2 [facility] Comment on above: Performed By: #### L IPA, CMP #### [facility] [address] [address] [address] José Miguel Farr Sodium [Moles/Vol] 140 mmol/L Normal 136-145 [facility] Comment on above: Performed By: #### L IPA, CMP #### [facility] [address] [address] [address] José Miguel Farr Urea nitrogen [Mass/Vol] 13.0 mg/dL Normal 7.0-18.0 [facility] Comment on above: Performed By: #### L IPA, CMP #### [facility] [address] [place] [address] Dr. José Miguel Farr Urea nitrogen/Creatinin e [Mass ratio] 15.7 mg/mg Normal [facility] Comment on above: Performed By: #### L IPA, CMP #### [facility] [address] [place] [address] Dr. José Miguel Farr MG MAMM SCREEN 3D RAVINDER CADon 06-07-2022 MG MAMM SCREEN 3D RAVINDER CAD Patient: DIANNA CHAVARRIA Exam Date: 06/07/2022 : 1960 Gender:F Ordering : DR SALLY GOODMAN Admission #: [id number] Family : Order #: [id number] CLICK HERE TO VIEW EXAM RADIOLOGY REPORT PROCEDURE: MAMMOGRAM SCREENING 3D BILATERAL CAD COMPARISON: MG MAMM SCREEN RAVINDER W CAD, 02/20/2018. MG MAMM SCREEN RAVINDER W CAD, 09/22/2019. INDICATIONS: Screening mammography Calculator Name NCI Breast Cancer Risk Assessment Tool 5 Year Breast Cancer Risk 1.30% Lifetime Breast Cancer Risk 5.30% Personal Breast Cancer No Personal Ovarian Cancer No Treatments None Family Cancers None LOCATION: [facility] BREAST COMPOSITION: Scattered areas fibroglandular density. FINDINGS: DIAGNOSTIC CATEGORY 1--NEGATIVE. NO CHANGE FROM COMPARISON ASSESSMENT. Scattered benign-appearing calcifications are present. Scattered benign-appearing lymph nodes are present. RIGHT BREAST: No significant suspicious finding. LEFT BREAST: No significant suspicious finding. RECOMMENDATIONS: ROUTINE MAMMOGRAM AND CLINICAL EVALUATION IN 12 MONTHS. PLEASE NOTE: A NORMAL MAMMOGRAM DOES NOT EXCLUDE THE POSSIBILITY OF BREAST CANCER. A CLINICALLY SUSPICIOUS PALPABLE LUMP SHOULD BE BIOPSIED. Dictated by: Miley Post MD on 06/07/2022 at 14:14 Approved by: Miley Post MD on 06/07/2022 at 14:16 Normal [facility] Lab Reportson 07-24-2020 Lab Reports [id number]#[id number]:127 Normal [facility] Reminderson 07-21-2020 Reminders - From: Bety Tompkins To: EU - Clinical; Sent: 06/25/2020 13:20:55 EDT Show up: 07/09/2020 12:20:00 EST Subject: FISH/Cytology Reminder/Recall FISH/Cytology Pt only had Cytology done on 06/25/2020. Will have scanned in to [facility]. Normal [facility] Pre-Certification Formon Pre-Certification Form [id number]:127 Normal [facility] RAD - CT Reporton 07-05-[address] - [address] Report [id number]#[id number]:127 Normal [facility] Reminderson 07-02-2020 Reminders - From: Larissa Rodriguez To: EU - Clinical; Sent: 06/25/2020 12:45:54 EDT Show up: 06/28/2020 12:45:00 EDT Subject: ct scan Due Date/Time: 07/02/2020 12:45:00 EDT Reminder/Recall Order faxed to [facility] to sched Ct scan after auth approved SHOW PRW results message sent to PRW. Normal [facility] Ambulatory Clinical Summaryo n 06-25-2020 Ambulatory Clinical Summary {[id number]}CD: [id number] Normal [facility] Patient Educationon 10-23-20 20 Patient Education Family Medicine Kidney Stones Kidney stones (ureteral lithiasis ) are solid masses that form inside your kidneys. The intense pain is caused by the stone moving through the kidney, ureter, bladder, and urethra (urinary tract ). When the stone moves, the ureter starts to spasm around the stone. The stone is usually passed in the urine. HOME CARE ? Drink enough fluids to keep your pee (urine ) clear or pale yellow. This helps to get the stone out. ? Strain all pee through the provided strainer. Do not pee without peeing through the strainer, not even once. If you pee the stone out, catch it. The stone may be as small as a grain of salt. Take this to your doctor. ? Only take medicine as told by your doctor. ? Follow up with your doctor as told. ? Get follow-up X-rays as told by your doctor. GET HELP RIGHT AWAY IF: ? Your pain does not get better with medicine. ? You have a fever. ? Your pain increases and gets worse over 18 hours. ? You have new belly (abdominal ) pain. ? You feel faint or pass out. MAKE SURE YOU: ? Understand these instructions. ? Will watch your condition. ? Will get help right away if you are not doing well or get worse. Document Released: 02/05/2009 Document Revised: 11/11/2012 Document Reviewed: 06/17/2010 ExitCare? Patient Information ?2013 [employer] [facility] Urology Office/Clinic Noteon 06-25-2020 Urology Office/Clinic Note Chief Complaint Complains of pain, pressure and frequncy HPI Staff Pt is here today for pain pressure and frequency. Previous dx of kidney stone and chronic cystitis. Pt continues using Estrace vaginal cream 1 gm 3x a week. Pt feels as if she is not emptying. PVR today shows 24ml. In the doing the PVR pt complained of a tender lower abdomen when i was pushing but states that she really didn't notice it before. Dysuria: denies pain and burning Incomplete bladder emptying: pt feels she is not emptying. PVR today is 24ml. Hematuria: Pt states that she did see a small blood spot in her underwear yesterday and UA today shows no blood Frequency: Pt states that she voids about 1x every 2 hours Urgency: yes for a couple of months now Nocturia: 3x for about 2 months Stream: moderate with hesitancy Leaking: no Post void dripping: no Wearing pads/ Depends: no Urge incontinence: no Stress incontinence: yes if she coughs every now and then Incontinence without Sensory Awareness: no Abdominal pain: pt has a very tender lower abdomen. States that she really didn't notice it until i was doing the PVR today Flank pain: pt is being treated through the pain clinic for back issues Sexual complaints: no History of Present Illness reviewed UA. Reviewed last encounter. There have been no associated fever, chills, flank pain or blood in the urine. Pt states she has intermittent pressure in lower abdomen. Review of Systems PHQ Score Initial Depression Screen Score: 2 ROS - Provider Constitutional: denies weight loss, denies hot flashes. Eyes: denies eye problems. Gastrointestinal: denies nausea, denies vomiting. Cardiovascular: denies chest pain or angina. Integumentary: no dryness Musculoskeletal: denies musculoskeletal symptoms. ENMT: denies otolaryngeal symptoms. Respiratory: no shortness of breath. Heme/Lymph: denies easy bleeding tendency, denies easy bruising tendency. Psychiatric: no confusion, no anxiety. Genitourinary: denies vaginal discharge, denies incontinence, denies dysuria, denies hematuria, denies urinary frequency, denies amenorrhea, denies menorrhagia, denies abnormal bleeding, denies pelvic pain, denies genital sores, and denies decreased libido. Physical Exam Vitals & Measurements HR: 69(Peripheral) RR: 16 BP: 117/71 HT: 160.02 cm HT: 160.0 cm WT: 62 kg WT: 62.0 kg BMI: 24.21 General Appearance: alert , no acute distress, well nourished, well developed female. Head: normocephalic . Eyes: normal orbit and globe. ENMT: normal examination of external ears. Chest: Lungs CTA, respirations non labored . Cardiovascular: regular rate and rhythm. Abdomen: soft, non distended, severe left CVA and SP tenderness, no mass or organomegaly, no hernia. Pelvic: No bladder or rectal prolapse or ZENIA. no a.v. Mild urethral prolapse Genitourinary: bladder nonpalpable, severe flank tenderness, left Lymph Nodes: unremarkable palpation of the cervical area. Skin: warm, dry, no bruising. Psychiatric: cooperative, affect appropriate for age, normal judgement, euthymic mood. Assessment/Plan 1. Kidney stone (N20.0: Calculus of kidney) CT done 01/07/19 showed 2 small non obstructing stones in the left kidney. Pt is having Moderate tenderness on the left flank. ?one dropped into L ureter? 2. Chronic cystitis (N30.20: Other chronic cystitis without hematuria) S/P Cysto/Ud 05/2016. Estrace 1g 3x a wk. MWF. Will continue this medication. no infections at all. 3. Urgency of urination (R39.15: Urgency of urination) pt states that she does have urgency issues. 4. Nocturia (R35.1: Nocturia) 3x a night and this has been going on for the past 2 months. 5. Gross hematuria (R31.0: Gross hematuria) Pt states that she seen a little bit of blood in her underwear yesterday. This was the first and only time. Discussed options. The patient is aware that a full workup for hematuria would include upper urinary tract imaging, a scope of the bladder, and a FISH/Cytology test of the urine. Even though the risk of finding urinary tract pathology, such as kidney tumors, kidney stones, or bladder cancer is low, there is a [place] that these problems may exists. The patient accepts this risk and elects not to do the workup. Should there be the development of any gross blood or clots in the urine, I should be notified immediately, and a workup would be generated. 6. Urethral prolapse (N36.8: Other specified disorders of urethra) Mild I have reviewed the previous health record information and history for this patient from Dr. Max Follow-up With When Contact Information IVY ZIMMERMAN, Rodger Teran [facility] [address] , [place] [address]- [phone] Additional Instructions: Patient Education Kidney Stones, [id number] I, Mercedes Puente, personally scribed for Dr. Max on 06/25/2020 10:29:53. . Documentation recorded by the scribe, Mercedes Puente, accurately reflects the services(s) I performed and decisions made by me. Authenticated by Dr. Max on 06/25/2020 10:32:28. Problem List/Past Medical History Ongoing Chronic cystitis Depression Gross hematuria Kidney stone Migraines Nocturia TIA (transient ischemic attack) Urethral prolapse Urgency of urination Historical No qualifying data Procedure/Surgical History Repair of long head of biceps brachii (01/01/2018), Cystourethroscopy with dilation of urethral stricture (05/30/2016), Appendectomy, Biopsy of breast, Cholecystectomy, Colonoscopy, Hemorrhoidectomy, Hysterectomy. Medications aspirin 81 mg oral tablet Estrace Vaginal Cream 0.1 mg/g, 1 gm, Vaginal, MonWedFri, 6 refills Allergies codeine (Unknown) Social History Alcohol Current, 1-2 times per year, 03/22/2019 Substance Abuse - Denies Substance Abuse, 03/22/2019 Tobacco - Denies Tobacco Use, 03/22/2019 Never (less than 100 in lifetime) Tobacco Use:. Never Smokeless Tobacco Use:., 03/22/2019 Family History Diabetes mellitus type 2: Father. Lab Results Ambulatory Point of Care Results Bilirubin Urine Dipstick: Negative (06/25/20 09:26:00) Blood Urine Dipstick: Negative (06/25/20 09:26:00) Glucose Urine Dipstick: Negative (06/25/20 09:26:00) Ketones Urine Dipstick: Negative (06/25/20 09:26:00) Leukocytes Urine Dipstick: Negative (06/25/20 09:26:00) Nitrite Urine Dipstick: Negative (06/25/20 09:26:00) Protein Urine Dipstick: Negative (06/25/20 09:26:00) Specific [place] Urine Dipstick: 1.020 (06/25/20 09:26:00) Urine Appearance Urine Dipstick: Cloudy (06/25/20 09:26:00) Urine Color Urine Dipstick: Yellow (06/25/20 09:26:00) Urobilinogen Urine Dipstick: Normal 0.2-1 EU/dl (06/25/20 09:26:00) pH Urine Dipstick: 7 (06/25/20 09:26:00) Normal [facility] Comment on above: Result Comment: Elec tronically Signed By: IVY ZIMMERMAN, Rodger Gold.br\Date and Time Signed: 06/25/20 10:32 EDT\.br\Electronically Co-Signed By: Mercedes Puente MA\.br\Date and Time Co-Signed: 06/25/20 10:30 EDT OPERATIVE REPORTon 8 OPERATIVE REPORT [address] [id number] OPERATIVE REPORTPATIENT NAME: DIANNA CHAVARRIA : 1960MED REC NO: [id number] ROOM:ACCOUNT NO: [id number] ADMIT DATE: 01/30/2018PROVIDER: Kimo FloresDATE OF PROCEDURE: 01/30/2018PREOPERATIVE DIAGNOSES:1. Left shoulder biceps tendinitis.2. Left shoulder rotator cuff syndrome.3. Left shoulder AC joint arthritis.POSTOPERATIVE DIAGNOSES:1. Left shoulder biceps tendinitis.2. Left shoulder rotator cuff syndrome.3. Left shoulder AC joint arthritis.4. Labral tear.OPERATION PERFORMED: Left shoulder arthroscopy with debridement of labrumincluding biceps tenotomy, subacromial decompression, distal clavicleexcision, open proximal biceps tenodesis.SURGEON: Kimo Flores DOANESTHESIA: General.COMPLICATIONS: None.DISPOSITION: To postanesthesia care unit in a stable condition.INDICATIONS: The patient is a 58-year-old female with longstanding ACjoint and biceps tendon pain failing conservative therapy. She understandsthe risks and benefits of the procedure. Informed consent was signed. Operative site was marked. Preoperative antibiotics were given.PROCEDURE IN DETAIL: The patient was taken to the operative suite andplaced in a supine position on the operating table. General inhalationanesthetic with endotracheal intubation was performed. Exam underanesthesia revealed a stable shoulder. The patient was placed in a lateralposition. Axillary roll was placed. She was padded under her bottom legand between her knees. Beanbag was deflated and secured to the table witha seatbelt. She was prepped and draped in a normal sterile fashion. Shewas placed in 10 pounds of arthroscopic traction. All bony landmarks weremarked with a marking pen. A posterior portal was established 2 cm distaland 1 cm medial to the posterolateral aspect of the acromion. The anteriorportal was established in the mid portion of the rotator interval by anoutside-in technique. Diagnostic arthroscopy revealed the humeral headarticular surface was intact. The glenoid articular surface was intact. The supraspinatus had no tearing. There was fraying of the superior labrumwith a type 2 SLAP lesion. There was a Eric complex present with asublabral foramen. The biceps tendon had a lipstick sign present. Therewas mild fraying of the subscapularis without complete tearing that wasdebrided back to a stable border. There was fraying of the anteroinferiorlabrum. This was debrided back to a stable border. These findings wereverified through also arthroscopy anteriorly. A biceps tenotomy wasperformed along with debridement of the labrum back to a stable border. The scope was placed in the subacromial space. A lateral portal wasestablished. A subacromial bursectomy was performed. The undersurface ofthe acromion was exposed with an ArthroCare device. A smoothingacromioplasty was performed to create a type 1 acromial morphology viewingposteriorly with a 30 and 70-degree scope. A 1 cm symmetrical distalclavicle excision was performed with a rosales through the anterior portal. Rotator cuff again was probed and was intact in the subacromial space. Allportals were closed with 3-0 nylon suture.A perpendicular incision was made to the pectoralis major tendon and theaxillary fold. Full thickness skin flap was created down to the pectoralisfascia. The pectoralis fascia was opened up with a blunt finger and thepectoralis major tendon was retracted laterally with a right-angleretractor in the bicipital groove. The biceps tendon was found and wasretrieved. Proximal 35 mm was resected. The distal 15 mm was whipstitchedwith a #2 FiberLoop from the musculotendinous junction to the remainingtendinous stump. This was tensioned with the musculotendinous junction atthe inferior border of the pectoralis major tendon. Then drill hole wasplaced with a spade-tip guidewire in the bicipital groove. Biceps buttonwas obtained and applied to the sutures. The biceps button was reducedthrough the hole into the humeral canal and deployed. Sutures were thenindividually tensioned advancing the tendon down onto the drill hole andbutton. A free needle was utilized to pass the suture back through thetendon and the tendon was overtied. The suture was cut. The wounds werecopiously irrigated and closed with 2-0 Vicryl, 3-0 Monocryl, and 3-0 nylonsutures. Sterile dressing was placed. DonJoy UltraSling was placed. Thepatient was awakened by Department of Anesthesia and transferred to thepostanesthesia care unit in a stable condition.KIMO FLORESD: 02/04/2018 21:37:16 [id number]#: [id number] Doc#: [id number]: Normal [facility] BUN + Creatinineon 8 (cont.) Normal [facility] Comment on above: Result Comment: Aver age GFR for 60-69 years old: 85 mL/min/1.73sq mChronic Kidney Disease: <60 mL/min/1.73sq mKidney failure: <15 mL/min/1.73sq meGFR calculated using average adult body mass. Additional eGFR calculator available at:[email or web address]_[email or web address] at [facility] [address] [place] [address] Performed By: #### C DP, BUNCRT, LYTE ####[address] [address] Creatinine 0.59 mg/dL Normal 0.50-0.90 [facility] Comment on above: Performed By: #### C DP, BUNCRT, LYTE ####[address] [address] eGFR (non-black) mL/min/{1.73_m2} Normal >60 [facility] Comment on above: Performed By: #### C DP, BUNCRT, LYTE ####[address] [address] Urea nitrogen 13 mg/dL Normal 8-23 [facility] Comment on above: Performed By: #### C DP, BUNCRT, LYTE ####[place] [address] Staging: NOT REPORTED Normal [facility] Comment on above: Performed By: #### C DP, BUNCRT, LYTE ####[place] [address] CBC with Diffon 01-16-2018 Abs. Basophil 0.00 k/uL Normal 0.0-0.2 [facility] Comment on above: Result Comment: Perf ormed at [facility] [address] [place] [address] Performed By: #### C DP, BUNCRT, LYTE ####[place] [address] Abs.Neutrophil (Seg) 5.00 k/uL Normal 1.8-7.7 [facility] Comment on above: Performed By: #### C DP, BUNCRT, LYTE ####[address] [address] Basophils/100 WBC Auto (Bld) 0 % Normal 0-2 [facility] Comment on above: Performed By: #### C DP, BUNCRT, LYTE ####[place] [address] Eosinophils 0.80 10*3/uL High 0.0-0.4 [facility] Comment on above: Performed By: #### C DP, BUNCRT, LYTE ####[address] [address] Eosinophils/100 leukocytes 10 % High 1-4 [facility] Comment on above: Performed By: #### C DP, BUNCRT, LYTE ####[address] [place] [address] Erythrocyte distribution width Auto Ratio (RBC) 12.7 % Normal 11.5-14.5 [facility] Comment on above: Performed By: #### C DP, BUNCRT, LYTE ####[address] [place] [address] Erythrocytes (RBC) 4.48 10*6/uL Normal 4.0-5.2 [facility] Comment on above: Performed By: #### C DP, BUNCRT, LYTE ####[address] [address] Hematocrit (HCT) 42.3 % Normal 36-46 [facility] Comment on above: Performed By: #### C DP, BUNCRT, LYTE ####[address] [address] Hemoglobin mass conc (Bld) 13.6 g/dL Normal 12.0-16.0 [facility] Comment on above: Performed By: #### C DP, BUNCRT, LYTE ####[address] [address] Lymphocytes 1.70 10*3/uL Normal 1.0-4.8 [facility] Comment on above: Performed By: #### C DP, BUNCRT, LYTE ####[address] [address] Lymphocytes/100 leukocytes 21 % Low 24-44 [facility] Comment on above: Performed By: #### C DP, BUNCRT, LYTE ####[address] [place] [address] MCH 30.4 pg Normal 26-34 [facility] Comment on above: Performed By: #### C DP, BUNCRT, LYTE ####[address] [address] MCHC mass conc (RBC) 32.3 g/dL Normal 31-37 [facility] Comment on above: Performed By: #### C DP, BUNCRT, LYTE ####[address] [address] MCV 94.3 fL Normal 80-100 [facility] Comment on above: Performed By: #### C DP, BUNCRT, LYTE ####[address] [address] Monocytes 0.70 10*3/uL Normal 0.2-0.8 [facility] Comment on above: Performed By: #### C DP, BUNCRT, LYTE ####[address] [address] Monocytes/100 leukocytes 9 % High 1-7 [facility] Comment on above: Performed By: #### C DP, BUNCRT, LYTE ####[address] [address] Neutrophil (Seg) 60 % Normal 36-66 [facility] Comment on above: Performed By: #### C DP, BUNCRT, LYTE ####[address] [address] Platelet mean volume (PMV) 7.7 fL Normal 6.0-12.0 [facility] Comment on above: Performed By: #### C DP, BUNCRT, LYTE ####[address] [address] Platelets 275 10*3/uL Normal 130-400 [facility] Comment on above: Performed By: #### C DP, BUNCRT, LYTE ####[address] [address] WBC (Leukocytes) 8.3 10*3/uL Normal 3.5-11.0 [facility] Comment on above: Performed By: #### C DP, BUNCRT, LYTE ####[address] [address] Auto Diff Performed NOT REPORTED Normal [facility] Comment on above: Performed By: #### C DP, BUNCRT, LYTE ####[address] [address] Erythrocyte morphology NOT REPORTED Normal [facility] Comment on above: Performed By: #### C DP, BUNCRT, LYTE ####[address] [address] Erythrocytes (RBC) NOT REPORTED Normal [facility] Comment on above: Performed By: #### C DP, BUNCRT, LYTE ####[address] [address] Granulocytes/100 WBC (Bld) NOT REPORTED Normal 0.00-0.30 [facility] Comment on above: Performed By: #### C DP, BUNCRT, LYTE ####[address] [address] Immature granulocytes #/vol (Bld) NOT REPORTED Normal 0 [facility] Comment on above: Performed By: #### C DP, BUNCRT, LYTE ####[address] [address] Platelets NOT REPORTED Normal [facility] Comment on above: Performed By: #### C DP, BUNCRT, LYTE ####[address] [address] WBC Morphology NOT REPORTED Normal [facility] Comment on above: Performed By: #### C DP, BUNCRT, LYTE ####[address] [address] Electrolyteson 01-16-2018 Anion gap 9 mmol/L Normal - [facility] Comment on above: Result Comment: Perf ormed at [facility] [address] [place] [address] Performed By: #### C DP, BUNCRT, LYTE ####[address] [address] Chloride 105 mmol/L Normal 98-107 [facility] Comment on above: Performed By: #### C DP, BUNCRT, LYTE ####[address] [address] CO2 28 mmol/L Normal 20-31 [facility] Comment on above: Performed By: #### C DP, BUNCRT, LYTE ####[address] [address] Potassium molar conc 4.5 mmol/L Normal 3.7-5.3 [facility] Comment on above: Performed By: #### C DP, BUNCRT, LYTE ####[address] [address] Sodium 142 mmol/L Normal 135-144 [facility] Comment on above: Performed By: #### C DP, BUNCRT, LYTE ####[address] [address] Vital Signs Date Time Vital Sign Value Performing Clinician Facility 09-20-2023 09:30-0500 Body height 165.1 cm Luis Alfredo Mendoza Other [facility] Other 09-20-2023 09:30-0500 Body mass index (BMI) [Ratio] 25.46 kg/m2 Luis Alfredo Mendoza Other [facility] Other 09-20-2023 09:30-0500 Body temperature 97.3 [degF] Luis Alfredo Mendoza Other [facility] Other 09-20-2023 09:30-0500 Body weight 69.4 kg Luis Alfredo Mendoza Other [facility] Other 09-20-2023 09:30-0500 Diastolic blood pressure 80 mm[Hg] Luis Alfredo Mendoza Other [facility] Other 09-20-2023 09:30-0500 SaO2% (BldA) [Mass fraction] 97 % Luis Alfredo Mendoza Other [facility] Other 09-20-2023 09:30-0500 Systolic blood pressure 124 mm[Hg] Luis Alfredo Mendoza Other [facility] Other 09-19-2023 12:59-0500 Body height 160.02 cm MD Mario Anderson Work Phone: [facility] 09-19-2023 12:59-0500 Body weight 69.85 kg MD Mario Anderson Work Phone: [facility] 09-19-2023 10:07-0500 Diastolic blood pressure 72 mm[Hg] MD Mario Anderson Work Phone: [facility] 09-19-2023 10:07-0500 Heart rate 63 /min MD Mario Anderson Work Phone: [facility] 09-19-2023 10:07-0500 Systolic blood pressure 125 mm[Hg] MD Mario Anderson Work Phone: [facility] 09-13-2023 10:18-0500 Diastolic blood pressure 86 mm[Hg] Rocky Rankin MD Work Phone: [facility] 09-13-2023 10:18-0500 Systolic blood pressure 126 mm[Hg] Rocky Rankin MD Work Phone: [facility] 09-13-2023 10:17-0500 Body height 160 cm Rocky Rankin MD Work Phone: [facility] 09-13-2023 10:17-0500 Body mass index (BMI) [Ratio] 27.63 kg/m2 Rocky Rankin MD Work Phone: [facility] 09-13-2023 10:17-0500 Body weight 70.76 kg Rocky Rankin MD Work Phone: [facility] 09-13-2023 10:17-0500 Heart rate 65 /min Rocky Rankin MD Work Phone: [facility] 08-30-2023 13:12-0500 Body height 160 cm Pm 1 [facility] 08-30-2023 13:12-0500 Body mass index (BMI) [Ratio] 26.93 kg/m2 Pm 1 [facility] 08-30-2023 13:12-0500 Body weight 68.95 kg Pmh 1 [facility] Encounters Encounter Date Encounter Type Care Provider Facility Start: 11-28-2023 End: 11-28-2023 ambulatory MYKEL B APLING Not Available Start: 11-09-2023 End: 11-09-2023 ambulatory SALLY WALLACE Not Available Start: 10-31-2023 End: 10-31-2023 ambulatory MYKEL B APLING Not Available Start: 10-24-2023 End: 10-24-2023 ambulatory MYKEL B APLING Not Available Start: 10-03-2023 End: 10-03-2023 ambulatory MYKEL B APLING Not Available Start: 09-26-2023 End: 09-26-2023 Evaluation and management of inpatient ROSANNA HILTON [facility] Start: 09-26-2023 End: 09-26-2023 Evaluation and management of inpatient WADE BURKS [facility] Start: 09-25-2023 Telephone encounter [facility] Start: 09-20-2023 Office outpatient vi sit 15 minutes Luis Alfredo Mendoza [facility] Start: 09-20-2023 Telephone encounter [facility] Start: 09-20-2023 End: 09-20-2023 ambulatory Luis Alfredo Mendoza Facility:[facility] Start: 09-20-2023 End: 09-20-2023 ambulatory MD Mario Anderson Work Phone: [facility] Work Phone: Start: 09-20-2023 End: 09-20-2023 Patient encounter procedure MD Mario Anderson Work Phone: [facility]-Ultrasound [facility] Start: 09-19-2023 End: 09-19-2023 ambulatory Gen Bartoni Facility:[facility] Start: 09-19-2023 End: 09-19-2023 ambulatory MD Mario Anderson Work Phone: [facility] Work Phone: Start: 09-19-2023 End: 09-19-2023 Patient encounter procedure MD Mario Anderson Work Phone: [facility]-Nuc [facility] Work Phone: Start: 09-13-2023 Telephone encounter [facility] Start: 09-13-2023 End: 09-13-2023 ambulatory [facility] Start: 09-13-2023 End: 09-13-2023 Encounter for other preprocedural examination [facility] Start: 09-13-2023 End: 09-13-2023 Office outpatient new 45 minutes Rocky Rankin MD Work Phone: [facility] Comment on above: Preoperative clearan ce (Primary Dx); Abnormal EKG; Mixed hyperlipidemia; Overweight with body mass index (BMI) of 27 to 27.9 in adult; Asymptomatic occlusion of extracranial carotid artery Start: 09-13-2023 End: 09-13-2023 Preoperative state Rocky Rankin MD Work Phone: [place] Work Phone: Start: 09-12-2023 End: 09-12-2023 ambulatory SALLY WALLACE Not Available Start: 09-11-2023 End: 09-11-2023 ambulatory JOHN PEREZ Not Available Start: 08-30-2023 Encounter for other preprocedural examination [facility] Start: 08-30-2023 End: 08-31-2023 ambulatory [facility] Start: 08-30-2023 End: 08-30-2023 Patient encounter procedure [facility] Pre-Admission Testing 1 [facility] - Pre Admit Start: 08-28-2023 End: 08-28-2023 ambulatory [facility] Not Available Start: 08-16-2023 End: 08-16-2023 ambulatory [facility] Not Available Start: 07-31-2023 End: 08-01-2023 ambulatory SALLY WALLACE Not Available Start: 02-01-2023 ambulatory KIERSTEN Gambino y:[facility] Start: 09-03-2022 End: 09-04-[address] GENA GORMAN . Facility:[facility] Start: 08-14-2022 End: 08-14-2022 ambulatory MD Mario Anderson Work Phone: [facility] Work Phone: Start: 08-14-2022 End: 08-14-2022 Patient encounter procedure MD Mario Anderson Work Phone: [facility]-XRay [facility] [place] Start: 08-01-2022 End: 08-01-2022 ambulatory MD Mario Anderson Work Phone: [facility] Work Phone: Start: 08-01-2022 End: 08-01-2022 Patient encounter procedure MD Mario Anderson Work Phone: [facility] Start: 07-31-2022 End: 07-31-2022 ambulatory MD Mario Andreson Work Phone: [facility] Work Phone: Start: 07-31-2022 End: 07-31-2022 Patient encounter procedure MD Mario Anderson Work Phone: [facility] Start: 06-13-2022 End: 06-13-2022 ambulatory JOYCE PEDRAZA Facility:[facility] Start: 06-07-2022 End: 06-08-2022 ambulatory SALLY WALLACE Facility: Start: 01-30-2018 End: 01-30-2018 Ambulatory KIMO R [facility] Start: 01-16-2018 End: 01-21-2018 Ambulatory KIMO [facility] Procedures Date Procedure Procedure Detail Performing Clinician Start: 09-13-2023 ECG 12-LEAD ROCKY EDOUARD Start: 09-13-2023 Ecg routine ecg w/le ast 12 lds w/i&r Rocky Rankin MD Work Phone: Start: 08-01-2022 Plain X-ray abdomen MD Mario Anderson Work Phone: Start: 06-07-2022 Mammography Rocky edouadr MD Work Phone: Start: 01-30-2018 PULSE OXIMETRY, CONTINUOUS KIMO FLORES Start: 01-30-2018 DISCHARGE PATIENT KIMO FLROES Start: 01-30-2018 PULSE OXIMETRY, CONTINUOUS KIMO FLORES Start: 01-30-2018 BEDREST KIMO FLORES Start: 01-30-2018 Continuous pulse oximetry KIMO FLORES Start: 01-30-2018 ENCOURAGE DEEP BREAT MAYANK AND COUGHING KIMO FLORES Start: 01-30-2018 INITIATE OXYGEN THER APY PROTOCOL KIMO FLORES Start: 01-30-2018 NURSING COMMUNICATION K BRIELLE FLORES Start: 01-30-2018 NOTIFY PHYSICIAN (SPECIFY) KIMO FLORES Start: 01-30-2018 PULSE OXIMETRY, CONTINUOUS KIMO FLORES Start: 01-30-2018 VITAL SIGNS KIMO FLORES Start: 01-16-2018 Blood count complete auto&auto difrntl wbc KIMO FLORES Start: 01-16-2018 BUN AND CREATININE KIMO FLORES Start: 01-16-2018 ELECTROLYTE PANEL KIMO FLORES Start: 01-16-2018 EKG 12-LEAD KIMO CINDI Plan of Treatment Date Care Activity Detail Author Start: 07-31-2033 DTaP,Tdap and Td Vac cines (2 - Td or Tdap) DTaP,Tdap and Td Vaccines (2 - Td or Tdap) [facility] Start: 07-31-2033 DTaP/Tdap/Td Vaccine s (2 - Td or Tdap) DTaP/Tdap/Td Vaccines (2 - Td or Tdap) [place] Start: 09-25-2024 Tobacco Screening Tobacco Screening [facility] Start: 08-30-2024 Adult BMI Screening Adult BMI Screen ing [facility] Start: 08-30-2024 Tobacco Screening Tobacco Screening [facility] Start: 09-26-2023 End: 09-26-2023 Admission to [facility] Comment on above: ARTHROSCOPIC MENISCE CTOMY KNEE with root repair [81534 (CPT )] Start: 09-26-2023 End: 09-26-2023 Anesthesia consultation 09/26/2023 9:15 AM EST Anesthesia Event [facility] [address] [place] [address] Rosanna Hilton MD [address] [place] [address] [facility] Start: 09-26-2023 End: 09-26-2023 Arthrs kne surg w/meniscectomy med/lat w/shvg [facility] Start: 09-26-2023 Subsequent hospital visit by physician [facility] Comment on above: Preop examination (P rimary Dx); Coronary artery disease involving [place] heart, unspecified vessel or lesion type, unspecified whether angina present; Chronic kidney disease, unspecified CKD stage Start: 09-20-2023 Doppler ultrasonogra phy of bilateral carotid arteries US carotid doppler BI [facility] Start: 09-20-2023 US.doppler Carotid arteries - bilateral [facility] Start: 09-19-2023 Radionuclide myocard ial perfusion stress study NM sin perf SPECT rest & str [facility] Start: 09-19-2023 SPECT Heart perfusio n at rest and W stress and W radionuclide IV [facility] Start: 09-13-2023 End: 09-13-2025 NM Heart Perfusion W stress and W radionuclide IV Nuclear Stress Test Cardiac Nuclear Medicine Routine Abnormal EKG Mixed hyperlipidemia Preoperative clearance Expected: 09/13/2023 (Approximate), Expires: 09/13/2025 [facility] Service Area Work Phone: Comment on above: Expected: 09/13/2023 (Approximate), Expires: 09/13/2025 Start: 06-07-2023 Screening for malign ant neoplasm of breast Mammogram [place] Start: 05-04-2023 COVID-19 Vaccine ( season) COVID-19 Vaccine () [facility] [employer] [facility] Start: 2023 Fall Risk Screening Fall Risk Screen ing [facility] Start: 12-01-2020 COVID-19 Vaccine (3 - Pfizer series) COVID-19 Vaccine (3 - Pfizer series) [place] Start: 1979 Screening for malign ant neoplasm of cervix [place] Start: 01-12-1976 Adult BMI Follow Up Plan Adult BMI F ollow Up Plan [facility] Start: 01-12-1976 Diabetes mellitus screening Diabetes Screening [place] Start: 01-12-1976 Hepatitis C screening Hepatitis C Sc jose raul [place] Start: 1970 Depression Screening Depression Scre ening [facility] Start: 1959 MMR Vaccines (1 of 1 - Standard series) MMR Vaccines (1 of 1 - Standard series) [place] Start: 1958 Annual wellness visit Medicare Initial Physical (IPPE) [place] Start: 1958 Lipid panel Lipid Panel [place] Start: 1958 Medicare Annual Well ness Visit Medicare Annual Wellness Visit [facility] Start: 1958 Screening for malign ant neoplasm of colon [place] Start: 1958 Screening for osteoporosis Bone Density Scan [place] Payers Date Payer Category Payer Unknown [id number] 2022 Unknown [id number] 1959 Unknown [id number] 1959 Unknown [id number] 1958 Unknown [id number] 2.16.84 0.1.400339.3.579.2.593 1958 Unknown [id number] 2.16.84 0.1.320455.3.579.2.593 1958 Unknown [id number] 2.16.84 0.1.513286.3.579.2.593 1958 Unknown [id number] 2.16.84 0.1.144140.3.579.2.593 1958 Unknown [id number] 2.16.8 40.1.809752.3.579.2.1244 1958 Unknown [id number] 2.16.8 40.1.488224.3.579.2.1286 1958 Unknown [id number] 2.16.8 40.1.740759.3.579.2.1286 1958 Unknown [id number] 2.16.8 40.1.202843.3.579.2.1286 1958 Unknown [id number] 2.16.84 0.1.495481.3.579.2.1286 1958 Unknown [id number] 2.16.84 0.1.437778.3.579.2.1286 1958 Unknown [id number] 2.16.84 0.1.908254.3.579.2.1286 1958 Unknown [id number] 2.16.84 0.1.130202.3.579.2.1286 1958 Unknown [id number] 2.16.84 0.1.776776.3.579.2.9 1958 Unknown [id number] 2.16.84 0.1.428949.3.579.2.1258 1958 Unknown [id number] 2.16.84 0.1.884018.3.579.2.1258 1958 Unknown [id number] 2.16.84 0.1.441612.3.579.2.1258 1958 Unknown [id number] 2.16.84 0.1.520970.3.579.2.1259 1958 Unknown [id number] 2.16.84 0.1.243057.3.579.2.1258 1958 Unknown [id number] 2.16.84 0.1.274000.3.579.2.1258 1958 Unknown [id number] 2.16.840 .1.479744.3.579.2.9 1958 Unknown [id number] 2.16.840 .1.106518.3.579.2.1258 1958 Unknown [id number] 2.16.840 .1.590376.3.579.2.1259 Self-pay Self Pay [id number] Social History Date Type Detail Facility Start: 11-08-2020 Tobacco smoking stat us MDIS Ex-smoker (finding) [facility] Start: 1960 Sex Assigned At Female F [facility] Start: 08-30-2023 End: 09-13-2023 Tobacco smoking status [facility] Never smoked tobacco [facility] Start: 08-30-2023 End: 09-13-2023 Tobacco use and exposure Smokeless tobacco non-user [facility] Start: 08-30-2023 End: 09-25-2023 Alcohol intake Ex-drinker (finding) [facility] Start: 02-12-2019 End: 08-30-2023 History of Social function [facility] Start: 02-12-2019 End: 08-30-2023 Tobacco use panel [facility] Housing Instability Unknown [facility] Start: 1960 Sex Assigned At Not on file [facility] Start: 09-13-2023 Alcohol intake Lifetime non-d capri (finding) [place] Work Phone: Start: 09-03-2023 End: 09-13-2023 Exposure to SARS-CoV-2 (event) Not sure [place] Clinical Notes 08-30-2023 to 09-25-2023 Telephone Encounter - Katia Ozuna - 09/25/2023 9:55 AM ESTTelephone Encounter - Katia Ozuna - 09/25/2023 9:55 AM EST Note Date & Type Note Facility 09-25-2023 Miscellaneous Notes Formattin g of this note might be different from the original. T/C to PCP office, spoke with Candy to notify her we have had three failed attempts to pt to schedule [facility] appt. Candy states that pt is seeing [facility] and no longer needs our services. Referral cancelled. documented in this encounter [facility] 09-25-2023 Telephone encount er Note T/C to PCP office, spoke with Candy to notify her we have had three failed attempts to pt to schedule [facility] appt. Candy states that pt is seeing [facility] and no longer needs our services. Referral cancelled. [facility] 09-20-2023 Evaluation note Encounter Date Diagnosis Assessment Notes Sep, Occlusion and stenosis of left carotid artery (ICD-10 - I65.22) This patient has a known chronic left internal carotid artery occlusion. The right side is normal. She is being treated medically with a high intensity statin and a low-dose aspirin. There is no indication for any surgical intervention at this time from a vascular surgery standpoint. She may proceed with her orthopedic planned surgery. Will see her back in 1 year for repeat surveillance duplex study. [facility] Other 01-18-2024 Miscellaneous Notes* Telephone Encounter - Katia Ozuna - 09/20/2023 9:35 AM EST LMOM for the patient to call and schedule their new pt appointment with PPC. documented in this encounterNorthwestern Medical CenterWonder Works Media [id number] Telephone encounter Note* Telephone Encounter - Katia Ozuna - 09/20/2023 9:35 AM EST LMOM for the patient to call and schedule their new pt appointment with PPC. [facility] [employer] [id number] History of Present illness Narrative* Rocky Rankin MD - 09/13/2023 9:50 AM EST Cardiology Consultation- New Consult Reason for referral: POC HPI: Dianna Chavarria is a 63 y.o. female who is being seen at the request of her PCP Dr. Anderson for preoperative cardiac clearance prior to right knee meniscus tear surgery scheduled in 10 days in [place] due to abnormal EKG. [address] and T changes. The patient has a medical history that is remarkable for left carotid occlusion in the past leading to symptom of TIA but the right side apparently was normal and has had no intervention. She follows with vascular surgery and there was no treatment offered. She has active lifestyle until she had the knee problem back in June 2023. She has no risk factor for CAD and denies any history of hypertension, hyperlipidemia or diabetes she is never smoker with no family history of vascular or cardiac disease. She takes baby aspirin on regular basis. Review of system essentially normal physical examination was unremarkable for slight overweight and EKG revealed sinus rhythm with diffuse ST and T changes Assessment/recommendations: 1-patient with cardiac clearance prior to right knee meniscus tear surgery and because of abnormal EKG she need cardiac clearance. The patient has vascular disease and 1 vascular bed which is the left carotid artery. She was advised to undergo a Lexiscan perfusion study if normal no further cardiactesting is needed. Was advised also to keep taking the aspirin afterwards. 2-occluded left internal carotid artery with no stroke, she has had no neurological events and follows with vascular surgery. Advised patient check her lipid profile and if LDL above 100 mg/dL to start on statin which should be directed by her PCP 3-overweight, the patient has active lifestyle and encouragement provided after surgery to try to lose weight. Past Medical History: She has no past medical history on file. Surgical History: She has a past surgical history that includes Hysterectomy; Gallbladder surgery; Cataract extraction (Bilateral); section, classic; Colonoscopy; and Shoulder biopsy. Family History: Family History Problem Relation Name Age of Onset Diabetes type I Father Dementia Father Social History: Social History Tobacco Use Smoking status: Never Smokeless tobacco: Never Substance Use Topics Alcohol use: Never Allergies: Clarithromycin Current Medications: Current Outpatient Medications: traMADol (Ultram) 50 mg tablet, Take 1 tablet (50 mg) by mouth., Disp: , Rfl: Vitals: Visit Vitals BP 126/86 (BP Location: Left arm, Patient Position: Sitting) Pulse 65 Ht 1.6 m (5' 3 ) Wt 70.8 kg (156 lb) BMI 27.63 kg/m Smoking Status Never BSA 1.77 m EKG done in office today Review of Systems All other systems reviewed and are negative. Objective Physical Exam Constitutional: Appearance: Normal appearance. She is normal weight. HENT: Nose: Nose normal. Neck: Vascular: No carotid bruit. Cardiovascular: Rate and Rhythm: Normal rate. Pulses: Normal pulses. Heart sounds: Normal heart sounds. Pulmonary: Effort: Pulmonary effort is normal. Abdominal: General: Bowel sounds are normal. Palpations: Abdomen is soft. Genitourinary: Rectum: Normal. Musculoskeletal: General: Normal range of motion. Cervical back: Normal range of motion. Right lower leg: No edema. Left lower leg: No edema. Skin: General: Skin is warm and dry. Neurological: General: No focal deficit present. Mental Status: She is alert. Psychiatric: Mood and Affect: Mood normal. Behavior: Behavior normal. Thought Content: Thought content normal. Judgment: Judgment normal. Assessment and Plan: 1. Preoperative clearance Nuclear Stress Test ECG 12 Lead 2. Abnormal EKG Nuclear Stress Test ECG 12 Lead 3. Mixed hyperlipidemia Nuclear Stress Test 4. Overweight with body mass index (BMI) of 27 to 27.9 in adult 5. Asymptomatic occlusion of extracranial carotid artery Scribe Attestation By signing my name below, I Macie Wilson LPN , Scribe attest that this documentation has been prepared under the direction and in the presence of Rocky Rankin MD. documented in this encounter[place] Work Phone: 1(443) 613-196601-11-2024 Instructions* Patient Instructions* Macie Johnson LPN - 09/13/2023 9:50 AM EST Please bring all medicines, vitamins, and herbal supplements with you when you come to the office. Prescriptions will not be filled unless you are compliant with your follow up appointments or have a follow up appointment scheduled as per instruction of your physician. Refills should be requested at the time of your visit. Will provide clearance after Lexiscan Follow up as needed after testing. documented in this encounter[facility] Work Phone: 1(382) 464-717901-11-2024 Miscellaneous Notes* Telephone Encounter - Katia Ozuna - 09/13/2023 8:58 AM EST LMOM for the patient to call and schedule their new pt appointment with PPC. documented in this encounterOhioHealth Mansfield HospitalSo1 [id number] Telephone encounter Note* Telephone Encounter - Katia Ozuna - 09/13/2023 8:58 AM EST LMOM for the patient to call and schedule their new pt appointment with PPC. [facility] [employer] [id number] Nurse Note* Perioperative Nursing Note - Belkys Rothman RN - 08/31/2023 10:03 AM EST Spoke with patient regarding anesthesia request for neuro and vascular clearance prior to surgery. Patient encouraged to contact Dr. Anderson for referrals to specialty doctors and call back with any questions. Sosa at Dr. Burks's office notified. [facility]12-29-2023 Miscellaneous Notes* Perioperative Nursing Note - Belkys Rothman RN - 08/31/2023 10:03 AM EST Spoke with patient regarding anesthesia request for neuro and vascular clearance prior to surgery. Patient encouraged to contact Dr. Anderson for referrals to specialty doctors and call back with any questions. Sosa at Dr. Burks's office notified. documented in this encounterHigh[facility] Hospital12-28-2023 Instructions* Patient Instructions* Belkys Rothman RN - 08/30/2023 12:45 PM EST Preoperative Education Checklist- General Surgery date: 09/26/23 Surgery time: 2p Arrival time: 12p 1. Bring a photo ID and your insurance card with you the day of surgery. You will check in at the main lobby of the [facility]- registration desk is straight ahead as soon as you walk in. Tell them you are here for surgery. 2. If you have a Living Will/Durable Power of Customs Brokerage Manager for Health Care that is not on file here, please bring a copy the day of surgery. 3. Please shower/bathe the night before surgery with the provided soap or wipes. Do not shower the morning of surgery- you will do use wipes when you arrive here at the hospital before getting into your surgical gown. Do not shave the area of your procedure for 2 days prior to your surgery. 4. NO powder, lotion, perfume/cologne, aftershave, make-up, deodorant, or hair products after you have bathed. 5. NO nail citizen of [place]/acrylic on at least one finger. If you are having a hand, wrist or foot surgery then all nail citizen of [place] and artificial/acrylic nails must be removed from that hand or foot. 6. Avoid ALL Aspirin and non-steroidal anti-inflammatory drugs and certain vitamins (Ibuprofen, Advil, Aleve, Excedrin, Meloxicam, Celebrex, fish/krill oil, etc.) for 7 days prior to surgery as instructed by your surgeon and/or your prescribing doctor. Tylenol IS ALLOWED. If you are on Ticlid, Xarelto, Eliquis, Pradaxa, Plavix or Coumadin, please check with your prescribing doctor for instructions for when to stop them. 7. If you use an inhaler, continue to use it routinely. 8. Nothing to eat or drink (not even water, gum, mints, or hard candy!) AFTER midnight prior to your surgery. 9. Take only medications that you are instructed to on the morning of surgery with a TINY SIP OF WATER. 10. Choose a responsible adult that will be able to drive you home when you are discharged from your hospital stay for your surgery and can stay with you in your home for 24 hours after your procedure. You must NOT drive any vehicle or operate any machinery for 24 hours after surgery. 11. When you dress for your appointment, please wear loose fitting clothing that is appropriate to accommodate your surgical area procedure. BRING WITH YOU ANY DEVICES YOU MAY NEED: CARLOS hose, ice machine, sling/swath, brace or special shoe, oversized zip-up or button up shirt, CPAP machine if staying overnight. 12. Do NOT wear jewelry, watches, or any piercings or metal for surgery- leave these valuables and money at home. 13. Do NOT wear contact lenses for surgery- glasses are okay if needed. 14. The anesthesiologist will talk with you the day of surgery and will ask you to sign a Consent Form. 15. Refrain from smoking or any type of tobacco use for at least 8 hours and marijuana for 24 hoursprior to arrival for your surgery. 16. If a GREEN BLOOD band is given to you, please bring it with you for the day of surgery. 17. Notify your surgeon if you develop any illness before your surgery. 18. If you are staying overnight, please DO NOT BRING your home medications with you. 19. If you have any questions prior to surgery, please call the Preadmission Testing office at [phone], Mon.-Fri. 7 a.m.-3 p.m. Leave a voicemail if needed. No current outpatient medications on file. How to Avoid an Infection after Your Surgery Your doctor will give you specific instructions, but remember: -ALWAYS wash hands before caring for your incision. -No picking, scratching, or rubbing your incision. -No creams, lotion, powder, rubbing alcohol or hydrogen peroxide on the incision (can harm the tissue and slow healing). -Your doctor will give you specific instructions for what type of dressing you will need and how often it will need changed for infection purposes. -No tight clothing on incision. -Do not allow anyone to touch your incision unless they are cleaning, checking, or redressing it (be sure they wash their hands first). -No contact of your incision with pets; avoid sleeping with pets. -Take full course of antibiotic if prescribed for you after surgery- do not stop unless directed mele your physician. You may also be given an antibiotic prior to your surgery to help prevent surgical site infections. -Eat a healthy and varied diet including proteins, fruits, and vegetables to help promote wound healing and keep blood sugars under control if you are diabetic. -Smoking slows the healing process by decreasing the amount of oxygen in your blood that is needed for tissue healing. Try to avoid or stop smoking if possible. LOOK at your incision each morning and each night to check the progress of healing. Some soreness, numbness, itching and/or mild bruising around the incision is normal. Call your doctor if you noticeany of the following: -Increased redness or hardening around the incision area. -Increased pain at the incision site. -Incision feels hot to the touch. -Swelling or pulling apart of the incision edges. -Yellow or green drainage or foul odor coming from the incision. -Bleeding from the incision (apply pressure as needed). -Fever higher than 101 degrees Fahrenheit for more than 4 hours. SHOWERING: Your doctor will give you specific instructions, but remember: -Be careful getting into and out of the shower. -Showers should be quick (5 minutes or less). -Use a clean washcloth to gently wash your incision with soap and water and pat the area dry with aclean towel. -No re-using wash cloths or towels; get a fresh one to clean your incision. -Do not soak in the bathtub, go swimming or use a hot tub (Jacuzzi), or perform activities where your incision is submerged in water or exposed to any fluids or substances until instructed by your doctor. -If your have the sticky strips (steri-strips) over the incision, it is OK to shower with them. Do not remove them. Let them fall off on their own. If you have a question, call your doctor s office. Go to the follow-up appointment with your doctor. documented in this encounterKettering Health [facility] SystemEvaluation noteNo assessment information availableDoctors Hospital Work Phone: Evaluation note* Diagnosis Preoperative clearance- Primary Unspecified pre-operative examination Abnormal EKG Nonspecific abnormal electrocardiogram (ECG) (EKG) Mixed hyperlipidemia Overweight with body mass index (BMI) of 27 to 27.9 in adult Asymptomatic occlusion of extracranial carotid artery documented in this encounter [place] Work Phone: History general Narrative - Reported* Type Description Date Medical History Arthritis Medical History kidney stones Medical History migraine headaches Medical History stroke Medical History carotid artery stenosis Surgical History CHOLECYSTECTOMY Surgical History HYSTERECTOMY Surgical History C section X 3 Surgical History TORN BICEP LT ARM Hospitalization History No know Hospitalization history [facility] Other InstructionsNot on filedocumented in this encounter [facility]Who [facility] Around You Summary Purpose Family History No Family History Records Found Relationship Condition Age at Onset Recorded Date/T willard father Alzheimer's disease Unknown Diabetes mellitus Unknown Advance Directives No Advanced Directives Records Found Advance Directive Response Recorded Date/ Time Advance Directives No October 02, 2019 5:16pm Chief Complaint and Reason for Visit Chief Complaint R11.2 R10.9 Chief Complaint R11.2 R10.9 R11.2 R10.9 Chief Complaint R11.2 R10.9 R11.2 R10.9 r11.2 r10.9 Chief Complaint abnormal ekg pre op Chief Complaint abnormal ekg pre op I65.23 Reason for Referral Specialty Diagnoses / Procedures Referred By Contac t Referred To Contact Diagnoses Stenosis of carotid artery, unspecified laterality Abnormal EKG Preoperative clearance Procedures ECG 12 Lead Rocky Rankin MD [address] [facility], [facility] [address] [place] [address] Referral ID Status Reason Start Date Expiration Date V isits Requested Visits Authorized Pending Review 09/13/2023 09/12/2024 1 1 Specialty Diagnoses / Procedures Referred By Contac t Referred To Contact Radiology Diagnoses Stenosis of carotid artery, unspecified laterality Abnormal EKG Mixed hyperlipidemia Preoperative clearance Procedures Nuclear Stress Test CHG MYOCARDIAL SPECT MULTIPLE STUDIES CHG MYOCARDIAL SPECT SINGLE STUDY AT REST OR STRESS Rocky Rankin MD [address] [facility] [address], [facility] [address] [place] [address] Referral ID Status Reason Start Date Expiration Date V isits Requested Visits Authorized Pending Review 09/13/2023 09/12/2024 5 5 Additional Source Comments INFORMATION SOURCE (unrecogn ized section and content) DATE CREATED AUTHOR 02/19/2018 [facility] DATE CREATED AUTHOR AUTHOR'S ORGANIZ ATION 07/24/2020 [facility] DATE CREATED AUTHOR AUTHOR'S ORGANIZ ATION 02/09/2023 [facility] DATE CREATED AUTHOR AUTHOR'S ORGANIZ ATION 09/16/2023 [facility] DATE CREATED AUTHOR AUTHOR'S ORGANIZ ATION 09/23/2023 [facility] DATE CREATED AUTHOR AUTHOR'S ORGANIZ ATION 09/29/2023 [facility] DATE CREATED AUTHOR AUTHOR'S ORGANIZ ATION 11/29/2023 [facility] [employer] Care Teams (unrecognized sec tion and content) Team Status: Active Member Role Status Dates Mario Anderson MD Primary Care Provider Active Team Status: Inactive Member Role Status Dates Mario Anderson MD Primary Care Provider Active S tart: September 19, 2023 End: September 19, 2023 Rocky Rankin MD Attending Provider Active St art: September 19, 2023 End: September 19, 2023 Gen Ohara MD Referring Provider Active Start: September 19, 2023 End: September 19, 2023 Team Status: Inactive Member Role Status Dates Mario Anderson MD Primary Care Provider Active Richard Alamo MD Attending Provider Active Clinical Admissions Manager Relationship Specialty Start Date End Date Mario Anderson MD [address] [facility] [address] [place] [address] PCP - General Family Medicine 09/13/23 Team Status: Inactive Member Role Status Dates Mario Anderson MD Primary Care Provider Active S tart: September 20, 2023 End: September 20, 2023 Luis Alfredo Mendoza MD Attending Provider Active Start: September 20, 2023 End: September 20, 2023 Clinical Admissions Manager Relationship Specialty Start Date End Date Sally Wallace PA [address] [facility] [address] [place], [place] [id number] PCP - General Physician Can Inspector 09/25/23 Goals (unrecognized section and content) Goals may be documented in a n alternate sectionGoals may be documented in an alternate sectionGoals may be documented in an alternate sectionGoals may be documented in an alternate sectionNot on filedocumented as of this encounterNot on filedocumented as of this encounterGoals may be documented in an alternate sectionNot on filedocumented as of this encounterGoals may be documented in an alternate sectionNo InformationNot on filedocumented as of this encounter Reason for Visit (unrecogniz ed section and content) Reason Comments Pre-op Clearance Abnormal ECG Ref/hemmer, poc meni scecetomy Specialty Diagnoses / Procedures Referred By Contac t Referred To Contact Diagnoses Stenosis of carotid artery, unspecified laterality Abnormal EKG Preoperative clearance Procedures ECG 12 Lead Rocky Rankin MD [address] [facility] [address] [place] [address] Referral ID Status Reason Start Date Expiration Date V isits Requested Visits Authorized [id number] Pending Review 09/13/2023 09/12/2024 1 1 FOR RECORDS PERTAINING TO PATIENTS WHO ARE OR HAVE BEEN ENROLLED IN A CHEMICAL DEPENDENCY/SUBSTANCEABUSE PROGRAM, SOME INFORMATION MAY BE OMITTED. This clinical summary was aggregated from multiple sources. Caution should be exercised in using it in the provision of clinical care. This summary normalizes information from multiple sources, and as a consequence, information in this document may materially change the coding, format and clinical context of patient data. In addition, data may be omitted in some cases. CLINICAL DECISIONS SHOULD BE BASED ON THE PRIMARY CLINICAL RECORDS. [facility]. provides no warranty or guarantee of the accuracy or completeness of information in this document.
--- NOTE | 2024-01-23 07:58 | XR_ITS ---
[address] [address] Patient Name: DIANNA CHAVARRIA MRN: [id number] date: 1960 Sex: F Assigned Patient Location: [facility] Current Patient Location: [facility] Accession/Order Number: [id number] Exam Date: 01/23/2024 08:05 Report Date: 01/23/2024 09:27 At the request of: ANDERSON WALLACE Procedure: XR DEXA axial skeleton EXAMINATION: XR DEXA axial skeleton, 01/23/2024 8:05 AM EDT HISTORY: Estrogen Deficiency COMPARISON: None. TECHNIQUE: Dual-energy X-ray absorptiometry (DEXA) bone density study performed for the axial skeleton. HISTORY: Estrogen Deficiency FINDINGS: Bone mineral density AP spine L1-L4 measures 1.013 g/sq cm. T score -1.4. WHO classification: Osteopenia. Bone mineral density left femoral neck measures 0.802 g/sq cm for T score -1.7. WHO classification: Osteopenia XR/XR DEXA axial skeleton IMPRESSION: Osteopenia. Moderate fracture risk Electronically authenticated by: MILEY HERNANDEZ Date: 01/23/2024 09:27
== END 2024-01-23 07:42 | disposition home or self-care (01) ==
PROVIDERS: PCP Family Medicine; Visit Provider Physician Assistant
DX: Z12.31 Encounter for screening mammogram for malignant neoplasm of breast (principal); E28.39 Other primary ovarian failure; M85.80 Other specified disorders of bone density and structure, unspecified site
CPT/HCPCS: 77063; 77067; 77080

== ENCOUNTER 2024-08-12 12:59 | Emergency (ER) | payer OTHER, SELFPAY ==
[2024-08-12] VITALS (29 sets, daily range): BP systolic 126–177; BP diastolic 57–115; PULSE 64–94; TEMP 36.7–36.9; O2SAT 98; BMI 27.5
--- NOTE | 2024-08-12 13:22 | ECG_ITS ---
The [facility] Test Date: 2024-08-12 Pat Name: DIANNA CHAVARRIA Department: Room: - Gender: Female [employer]: : 1960 Requested By: SHANE ANDERSON Order Number: [id number] Reading MD: EDWARDO DUNN Measurements Intervals [place] Rate: 77 P: 23 TN: 142 QRS: 39 QRSD: 72 T: 55 QT: 370 QTc: 402 Interpretive Statements 1100 Sinus rhythm 1470 with occasional supraventricular premature complexes 8102 Low QRS voltage in chest leads 9140 abnormal rhythm ECG Compared to ECG 09/04/2022 05:47:44 Sinus bradycardia no longer present Sinus arrhythmia no longer present Electronically Signed On 08-14-2024 8:02:34 EST by EDWARDO DUNN
--- NOTE | 2024-08-12 13:22 | XR_ITS ---
The [address] [address] Patient Name: DIANNA CHAVARRIA MRN: [id number] date: 1960 Sex: F Assigned Patient Location: ER Current Patient Location: ER Accession/Order Number: [id number] Exam Date: 08/12/2024 14:06 Report Date: 08/12/2024 14:22 At the request of: BENIGNO RODRÍGUEZ Procedure: XR chest 1V EXAMINATION: XR chest 1V HISTORY: Hypertension COMPARISON: XR chest 09/27/2020 FINDINGS: LUNGS: Hyperexpanded lungs. New mild opacity within lateral left lung base obscuring the costophrenic angle. VASCULATURE: No increased pulmonary vasculature. PLEURA: No pneumothorax, effusion, or pleural thickening. CARDIAC: No cardiomegaly or cardiac silhouette abnormality. MEDIASTINUM: No visible mass or adenopathy. BONES: No fracture or visible bone lesion. OTHER: Negative. XR/XR chest 1V IMPRESSION: 1. Opacity within lateral left lung base is more suggestive of a pericardial fat pad than infiltrate, however, it is new compared to 09/27/2020. Electronically authenticated by: DERRELL WYNN Date: 08/12/2024 14:22
--- NOTE | 2024-08-12 13:23 | CT_ITS ---
The [address] [address] Patient Name: DIANNA CHAVARRIA MRN: [id number] date: 1960 Sex: F Assigned Patient Location: ER Current Patient Location: ER Accession/Order Number: [id number] Exam Date: 08/12/2024 14:06 Report Date: 08/12/2024 14:22 At the request of: BENIGNO RODRÍGUEZ Procedure: CT head/brain wo con EXAM: CT head/brain wo con HISTORY: Hypertension, visual change COMPARISON: 09/27/2020 TECHNIQUE: Multiple thin computed tomograms of the head were obtained, with sagittal and coronal reconstructions. Radiation reduction technique and algorithms were utilized during the study. FINDINGS: The ventricles are not enlarged, the lateral ventricles are symmetric and the third ventricles in the midline. The sylvian fissures and cortical sulci are unremarkable. There is no evidence of an intracranial hemorrhage, mass lesion or apparent acute infarct. No focal abnormality is identified the deep white matter. The cerebellum and visualized brainstem are intact. A small mucocele or cyst is seen in the right maxillary sinus, and the paranasal sinuses otherwise clear. The middle ears are aerated. The mastoid sinuses are clear. There is no apparent acute skull fracture. CT/CT head/brain wo con IMPRESSION: There is no evidence of an intracranial hemorrhage, mass lesion or apparent acute infarct. A small mucocele or cyst is seen in the right maxillary sinus and the visualized paranasal sinuses are otherwise clear. There is no apparent acute skull fracture. The overall appearance has not changed significantly. Electronically authenticated by: GAVIOTA HINDS Date: 08/12/2024 14:22
--- NOTE | 2024-08-12 13:23 | ED_ITS ---
HPI HPI - General Adult General Chief complaint: Headache Stated complaint: elevated blood pressure Time Seen by Provider: 08/12/24 13:13 Source: patient Mode of arrival: walk-in Limitations: no limitations History of Present Illness HPI narrative: Patient is a 64-year-old female with a history of previous CVA who presents to the emergency department for a 4-day history of elevated blood pressures. She takes baby aspirin daily but does not take any medication for high blood pressure. She states her blood pressure is usually in the 110s to 120s systolic. Patient states her vision has been blurry but she has not had any visual loss or double vision. She has had a minimal headache and she reports minimal chest discomfort over the last several days. They came to the emergency department today because the patient had her blood pressure checked at work and it was 180 systolic. She states she has been feeling mildly short of breath. No fevers, cough or congestion. She has had ongoing issues with upper abdominal cramping. No vomiting or diarrhea. She denies peripheral paresthesias. No unilateral weakness. Related Data Home Medications ?Medication ?Instructions ?Recorded ?Confirmed acetaminophen 325 mg capsule 650 mg PO ONCE PRN pain 01/31/23 01/31/23 (Tylenol) vnivvzeucqikyfc-obqyiqckmzfobqf-EG 5 ml PO Q6H PRN allergy symptoms 01/31/23 01/31/23 2 mg-30 mg-10 mg/5 mL oral syrup (Bromfed DM) omeprazole 20 mg tablet,delayed 20 mg PO QDAY 01/31/23 01/31/23 release Previous Rx's ?Medication ?Instructions ?Recorded iociiqpayz-asfnqfxhwxdvw-xoobpqzo 1 cap PO Q6H PRN headache 3 days 08/12/24 50 mg-300 mg-40 mg capsule #12 caps (Fioricet) Allergies Allergy/AdvReac Type Severity Reaction Status Date / Time biaxin AdvReac Severe Anaphylaxis Uncoded 01/31/23 15:14 Opioid HPI Opioid Management Most Recent Opioid Data: Last Pain Scale 5 08/12/24 16:10 08/12/24 Last MAR Pain Assessment 08/12/24 16:10 Review of Systems ROS Constitutional Denies: fever or chills Eyes Reports: blurry vision Ears, nose, mouth, and throat Denies: throat pain Cardiovascular Reports: chest pain Respiratory Reports: shortness of breath; Denies: cough Gastrointestinal Reports: abdominal pain; Denies: nausea, vomiting or diarrhea Genitourinary Denies: painful urination Musculoskeletal Denies: back pain or neck pain Integumentary/Breast Denies: rash Neurological Reports: headache; Denies: numbness in extremities or weakness in extremities Hematologic/Lymphatic Denies: easy bruising or easy bleeding PFSH PFS Medical History (Updated 08/12/24 @ 16:30 by MAXINE Perez) Flank pain ?R10.9 - Unspecified abdominal pain (ICD-10) Cataracts, bilateral ?H26.9 - Unspecified cataract (ICD-10) Nausea and vomiting ?R11.2 - Nausea with vomiting, unspecified (ICD-10) Depression ?F32.A - Depression, unspecified (ICD-10) Kidney stones ?N20.0 - Calculus of kidney (ICD-10) Migraine ?G43.909 - Migraine, unspecified, not intractable, without status migrainosus (ICD-10) Shoulder pain ?M25.519 - Pain in unspecified shoulder (ICD-10) CVA (cerebral vascular accident) ?I63.9 - Cerebral infarction, unspecified (ICD-10) Falls ?W19.XXXA - Unspecified fall, initial encounter (ICD-10) Influenza A ?J10.1 - Influenza due to other identified influenza virus with other respiratory manifestations (ICD-10) CAD (coronary artery disease) ?I25.10 - Atherosclerotic heart disease of [place] coronary artery without angina pectoris (ICD-10) Surgical History (Updated 01/31/23 @ 16:03 by Kina Pulido RN) Hx of hemorrhoidectomy ?Z98.890 - Other specified postprocedural states (ICD-10) H/O: hysterectomy ?Z90.710 - Acquired absence of both cervix and uterus (ICD-10) History of cholecystectomy ?Z90.49 - Acquired absence of other specified parts of digestive tract (ICD- 10) History of ?Z98.891 - History of uterine scar from previous surgery (ICD-10) Family History (Updated 01/31/23 @ 15:44 by Kina Pulido RN) Father Dementia Mother Family history of diabetes mellitus Social History Smoking status: Never smoker Non-prescribed substance use: denies use Previous occupational history: [employer] Highest level of school completed/degree received: high school graduate Little interest or pleasure in doing things: not at all Feeling down, depressed, or hopeless: not at all Exam Narrative Exam Narrative: Gen.: Awake, alert, in no distress Head: Normocephalic, atraumatic ENT: Moist mucous membranes Respiratory: No respiratory distress, lungs clear bilaterally Cardio: Regular rate and rhythm Gastrointestinal: Abdomen is soft, nondistended and nontender to palpation Extremities: Moves extremities equally Psych: Normal mood and affect Neuro: No focal neuro deficit Skin: Warm, dry, intact Constitutional Vital Signs, click to edit/add: Last Vital Signs Temp 98.4 F 08/12/24 15:59 Pulse 81 08/12/24 15:59 Resp 12 08/12/24 15:59 BP 150/87 H 08/12/24 15:59 Pulse Ox 98 08/12/24 13:13 O2 Del Method Room Air 08/12/24 13:13 Course Vital Signs Vital signs: Vital Signs Temperature 98.1 F 08/12/24 13:13 Pulse Rate 83 08/12/24 13:13 Respiratory Rate 14 08/12/24 13:13 Blood Pressure 177/91 H 08/12/24 13:13 Pulse Oximetry 98 08/12/24 13:13 Oxygen Delivery Method Room Air 08/12/24 13:13 Temperature 98.4 F 08/12/24 15:59 Pulse Rate 81 08/12/24 15:59 Respiratory Rate 12 08/12/24 15:59 Blood Pressure 150/87 H 08/12/24 15:59 Pulse Oximetry 98 08/12/24 13:13 Oxygen Delivery Method Room Air 08/12/24 13:13 Medical Decision Making MDM Narrative Medical decision making narrative: Initial blood pressure was elevated, however the patient's blood pressure did normalize without medications being given. She was given Tylenol for headache and additional Toradol for headache although she appears in no distress with no focal neuro deficit. EKG, 2 troponins are negative. 1600: Patient's nurse made me aware that the patient's daughter at bedside was very frustrated and angry that no one had been in to see the patient. Apparently when she returned from CT, she was not placed back on her blood pressure cuff immediately and the patient's daughter was upset that she had to replace the blood pressure cuff herself. Patient had no uncontrolled hypertension in the emergency room. She had no complaints of severe chest pain. I offered to contact the nursing supervisor pipelines to speak with the patient and her daughter at bedside, patient was offered an observation stay if she was not feeling better. Nursing and myself apologized to the patient and family, explaining that we are short staffed and very busy and the patient is very stable at this time. Patient was reevaluated by attending physician to discuss treatment plan for home. 1627: Attending physician had a lengthy discussion with the patient and her daughter at bedside. Patient would like to be discharged home to follow-up with her doctor on her blood pressure. I feel this is reasonable as her workup is unremarkable. Return to the emergency department if symptoms change or worsen. Fioricet given for headache for home. SHARED APC VISIT, PHYSICIAN ATTESTATION: [id number] I performed a substantive part of the MDM during the patient?s E/M visit. I personally evaluated and examined the patient. I personally made or approved the documented management plan and acknowledge its risk of complications. Medical Records Medical records reviewed: Yes I reviewed the patient's medical records Lab Data Lab results reviewed: Yes I reviewed the patient's lab results Labs: Lab Results 08/12/24 08/12/24 Range/Units 13:40 15:30 WBC 8.0 (4.0-11.0) 10^3/uL RBC 4.16 L (4.20-5.40) 10^6/uL Hgb 13.0 (12.0-16.0) g/dL Hct 39.2 (36.0-48.0) % MCV 94.2 (81.0-99.0) fL MCH 31.3 (26.7-34.0) pg MCHC 33.2 (29.9-35.2) g/dL RDW 11.7 (11.0-15.0) % Plt Count 261 (150-450) 10^3/uL MPV 9.7 (9.5-13.5) fL Neut % (Auto) 63.6 (43.0-75.0) % Lymph % (Auto) 19.6 L (20.5-60.0) % [place] % (Auto) 9.0 (1.7-12.0) % Eos % (Auto) 6.6 (0.9-7.0) % Baso % (Auto) 1.1 (0.2-2.0) % Neut # (Auto) 5.1 (1.4-6.5) 10^3/uL Lymph # (Auto) 1.6 (1.2-3.8) 10^3/uL [place] # (Auto) 0.7 (0.3-0.8) 10^3/uL Eos # (Auto) 0.5 (0.0-0.7) 10^3/uL Baso # (Auto) 0.1 (0.0-0.1) 10^3/uL Abs Immat Gran (auto) 0.01 (0.00-0.03) 10^3/uL Imm/Tot Granulo (auto) 0.1 (0.0-0.5) % PT 10.7 (9.0-11.6) sec INR 1.01 Sodium 142 (136-145) mmol/L Potassium 4.2 (3.5-5.1) mmol/L Chloride 108 H (98-107) mmol/L Carbon Dioxide 26.6 (21.0-32.0) mmol/L Anion Gap 11.6 BUN 13.0 (7.0-18.0) mg/dL Creatinine 0.83 (0.55-1.02) mg/dL Est GFR ( Amer) >60 (>=60 mL/min/1.73m^2) Est GFR (Non-Af Amer) >60 (>=60 mL/min/1.73m^2) BUN/Creatinine Ratio 15.7 Glucose 107 H (74-106) mg/dL Calcium 8.9 (8.5-10.1) mg/dL Total Bilirubin 0.5 (0.2-1.0) mg/dL AST 20 (15-37) U/L ALT 20 (14-59) U/L Alkaline Phosphatase 72 (46-116) U/L Troponin I High Sens 5.2 5.6 (4.0-51.3) pg/mL NT-Pro-B Natriuret Pep 195.0 (<=900.0) pg/mL Total Protein 6.7 (6.4-8.2) g/dL Albumin 3.5 (3.4-5.0) g/dL Globulin 3.2 g/dL Albumin/Globulin Ratio 1.1 TSH 1.441 (0.358-3.740) uIU/mL Imaging Data CT scan - head: Attestation: I have reviewed the pertinent imaging results. Radiologist's impression: ITS Impressions Chest X-Ray 08/12/24 13:22 IMPRESSION: 1. Opacity within lateral left lung base is more suggestive of a pericardial fat pad than infiltrate, however, it is new compared to 09/27/2020. Electronically authenticated by: DERRELL WYNN Date: 08/12/2024 14:[address] 08/12/24 13:23 IMPRESSION: There is no evidence of an intracranial hemorrhage, mass lesion or apparent acute infarct. A small mucocele or cyst is seen in the right maxillary sinus and the visualized paranasal sinuses are otherwise clear. There is no apparent acute skull fracture. The overall appearance has not changed significantly. Electronically authenticated by: GAVIOTA HINDS Date: 08/12/2024 14:22 ECG Data Attestation: I personally reviewed and interpreted this ECG as follows: (Normal sinus rhythm at a rate of 77 with occasional PVC, no acute ST elevation. EKG reviewed by attending physician) Discharge Plan Discharge Chief Complaint: Headache Clinical Impression: Headache, Elevated blood pressure reading Patient Disposition: Home, Self-Care Time of Disposition Decision: 16:30 Condition: Good Prescriptions / Home Meds: New dwjrriptkx-mjpcryhgzupsw-nhvr [Fioricet] 50-300-40 mg capsule 1 cap PO Q6H PRN (Reason: headache) 3 Days Qty: 12 0RF Rx Instructions: DX: R51.9 No Action acetaminophen [Tylenol] 325 mg capsule 650 mg PO ONCE PRN (Reason: pain) gabbpvomwhvapfr-kjupdbtye-LZ [Bromfed DM] 2-30-10 mg/5 mL syrup 5 ml PO Q6H PRN (Reason: allergy symptoms) omeprazole 20 mg tablet,delayed release (DR/EC) 20 mg PO QDAY Print Language: Japanese Instructions: Acute Headache (ED), Hypertension (ED) Referrals: SHANE ANDERSON [Primary Care Provider] - 1 week
[2024-08-12 13:51] LABS: Basophils Absolute Auto 0.1 10^3/uL (0.0-0.1); Basophils Percent Auto 1.1 % (0.2-2.0); Eosinophils Absolute Auto 0.5 10^3/uL (0.0-0.7); Eosinophils Percent Auto 6.6 % (0.9-7.0); Hematocrit 39.2 % (36.0-48.0); Immature Granulocytes Abs Auto 0.01 10^3/uL (0.00-0.03); Immature Granulocytes Pct Auto 0.1 % (0.0-0.5); Lymphocytes Absolute Auto 1.6 10^3/uL (1.2-3.8); Lymphocytes Percent Auto 19.6 % (20.5-60.0); Mean Corpuscular HGB Conc 33.2 g/dL (29.9-35.2); Mean Corpuscular Hemoglobin 31.3 pg (26.7-34.0); Mean Corpuscular Volume 94.2 fL (81.0-99.0); Mean Platelet Volume 9.7 fL (9.5-13.5); Monocytes Absolute Auto 0.7 10^3/uL (0.3-0.8); Neutrophils Absolute Auto 5.1 10^3/uL (1.4-6.5); Neutrophils Percent Auto 63.6 % (43.0-75.0); Platelet Count 261 10^3/uL (150-450); Red Blood Count 4.16 10^6/uL (4.20-5.40); Red Cell Distribution Width 11.7 % (11.0-15.0)
[2024-08-12] MEDS: ACETAMINOPHEN 500 MG TABLET 1000 MG PO (13:56)
[2024-08-12 14:07] LABS: Alanine Aminotransferase 20 U/L (14-59); Albumin Globulin Ratio 1.1; Albumin Level 3.5 g/dL (3.4-5.0); Alkaline Phosphatase 72 U/L (46-116); Anion Gap 11.6; Aspartate Amino Transferase 20 U/L (15-37); BUN Creatinine Ratio 15.7; Bilirubin Total 0.5 mg/dL (0.2-1.0); Calcium 8.9 mg/dL (8.5-10.1); Carbon Dioxide 26.6 mmol/L (21.0-32.0); Chloride 108 mmol/L (98-107); Estimated GFR (African America >60 (>=60 mL/min/1.73m^2); Estimated GFR (Non-African Ame >60 (>=60 mL/min/1.73m^2); Globulin 3.2 g/dL; Glucose 107 mg/dL (74-106); Potassium 4.2 mmol/L (3.5-5.1); Sodium 142 mmol/L (136-145); Total Protein 6.7 g/dL (6.4-8.2)
[2024-08-12 14:08] LABS: INR 1.01; Prothrombin Time 10.7 sec (9.0-11.6)
[2024-08-12 14:13] LABS: Troponin I High Sensitivity 5.2 pg/mL (4.0-51.3)
[2024-08-12 14:14] LABS: Thyroid Stimulating Hormone 1.441 uIU/mL (0.358-3.740)
[2024-08-12 16:04] LABS: Troponin I High Sensitivity 5.6 pg/mL (4.0-51.3)
[2024-08-12] MEDS: KETOROLAC TROMETHAMINE 30 MG/ML VIAL IVP (16:10)
== END 2024-08-12 16:41 | disposition home or self-care (01) ==
PROVIDERS: Physician Assistant; Emergency Provider Emergency Medicine; PCP Family Medicine
DX: R51.9 Headache, unspecified (principal); R03.0 Elevated blood-pressure reading, without diagnosis of hypertension; Z86.73 Personal history of transient ischemic attack (TIA), and cerebral infarction without residual deficits; Z79.82 Long term (current) use of aspirin; R06.02 Shortness of breath; Z90.710 Acquired absence of both cervix and uterus; Z90.49 Acquired absence of other specified parts of digestive tract; R10.9 Unspecified abdominal pain; H53.8 Other visual disturbances; R07.89 Other chest pain
CPT/HCPCS: 36415; 70450; 71045; 80053; 83880; 84443; 84484; 85025; 85610; 93005; 96374; 99285; J1885